=== PATIENT | female | born 1940 ===

== ENCOUNTER 2017-01-02 20:34 | Inpatient (IN) | payer MEDICAID, MEDICARE, OTHER ==
[2017-01-02] MEDS ORDERED: Albuterol-Ipratrop 3 mg / 0.5 (3 ml) UD IH STA (20:43)
--- NOTE | 2017-01-02 20:43 | ED PDOC ---
HPI: CCC, URI, Sore Throat Time Seen by Provider: 01/02/17 20:37 Chief Complaint (Nursing): Flu-like Symptoms Chief Complaint (Provider): Cough History Per: Patient History/Exam Limitations: no limitations Have you had recent travel within the past 21 days to any of the following countries: [place], [place], [place] or [place]?: No Onset/Duration Of Symptoms: Days (x3) Current Symptoms Are (Timing): Still Present Associated Symptoms: Fever (subjective), Cough (w/cough associated chest pain), Sputum (brown), Myalgias Severity: Moderate Additional Complaint(s): Yovana Hernandes is a 76 year old female, with a past medical history inclusive of HTN, hypercholesterolemia, asthma and type II diabetes, who presents to the ED on 01/02/17, via EMS, for the evaluation of a moderate cough, productive of brown sputum, that she has experienced x3 days. Some cough-associated chest pain also reported in addition to a subjective fever and diffuse myalgias. PMD: Gagandeep Escobar Past Medical History Reviewed: Historical Data, Nursing Documentation, Vital Signs Vital Signs: Last Vital Signs Temp 101.7 F H 01/02/17 20:43 Pulse 105 H 01/02/17 20:43 Resp 16 01/02/17 20:43 BP 157/85 H 01/02/17 20:43 Pulse Ox 100 01/02/17 20:43 - Medical History PMH: Asthma, Diabetes (type II), HTN, Hypercholesterolemia - Surgical History Surgical History: No Surg Hx - Family History Family History: States: Unknown Family Hx - Immunization History Hx Tetanus Toxoid Vaccination: No - Home Medications Home Medications: Ambulatory Orders Medication Instructions Recorded Ondansetron ODT [Zofran ODT] 4 mg PO Q6 #20 odt 12/26/14 Albuterol 0.083% [Albuterol 3 ml IH Q8 #1 neb 10/10/16 Sulfate 3 Ml] Oseltamivir [Tamiflu] 75 mg PO BID #10 cap 10/10/16 Promethazine/Codeine 5 ml PO Q8 #60 ml 10/10/16 [Codeine/Promethazine 10 MG/5 Ml-6.25 MG/5 Ml] - Allergies Allergies/Adverse Reactions: Allergies Allergy/AdvReac Type Severity Reaction Status Date / Time No Known Allergies Allergy Verified 01/02/17 20:43 Review of Systems ROS Statement: Except As Marked, All Systems Reviewed And Found Negative Constitutional: Positive for: Fever (subjective), Other (diffuse myalgias) Respiratory: Positive for: Cough (w/cough associated chest pain), Sputum (brown) Physical Exam - Reviewed Nursing Documentation Reviewed: Yes Vital Signs Reviewed: Yes - Physical Exam Appears: Positive for: Non-toxic, No Acute Distress Head Exam: Positive for: ATRAUMATIC, NORMOCEPHALIC Skin: Positive for: Normal Color, Warm, Dry Eye Exam: Positive for: Normal appearance, PERRL ENT: Positive for: Normal ENT Inspection. Negative for: Pharyngeal Erythema, Tonsillar Exudate, Tonsillar Swelling Cardiovascular/Chest: Positive for: Regular Rate, Rhythm. Negative for: Murmur Respiratory: Positive for: Rhonchi (b/l). Negative for: Wheezing, Respiratory Distress Back: Positive for: Normal Inspection Extremity: Positive for: Normal ROM. Negative for: Swelling Neurologic/Psych: Positive for: Alert, Oriented - Laboratory Results Result Diagrams: 01/02/17 21:04 01/02/17 21:04 Medical Decision Making Medical Decision Makin:37 Initial Impression: fever, cough, body aches Initial Plan: * EKG * CXR * VBG Shock Panel * Labs * Troponin I * Influenza A B * Blood Culture * Tylenol 650mg PO * Duonebs 3ml INH * Peak Flow Pre/Post Treatment * Reevaluation Scribe Attestation: Documented by Savanna Colon, acting as a scribe for Willam Watkins MD. Provider Scribe Attestation: All medical record entries made by the Scribe were at my direction and personally dictated by me. I have reviewed the chart and agree that the record accurately reflects my personal performance of the history, physical exam, medical decision making, and the department course for this patient. I have also personally directed, reviewed, and agree with the discharge instructions and disposition. Disposition - Clinical Impression Clinical Impression: Systemic inflammatory response syndrome (SIRS) - Patient ED Disposition Is Patient to be Admitted: Yes - Disposition Disposition Time: 22:19 Condition: FAIR - Pt Status Changed To: Hospital Disposition Of: Inpatient - Admit Certification Admit to Inpatient:: After my assessment, the patient will require hospitalization for at least two midnights. This is because of the severity of symptoms shown, intensity of services needed, and/or the medical risk in this patient being treated as an outpatient. - POA Present On Arrival: None
[2017-01-02] MEDS ORDERED: Albuterol-Ipratrop 3 mg / 0.5 (3 ml) UD ONE (20:49)
[2017-01-02 21:17] LABS: VENOUS BLOOD GAS BASE EXCESS 4.5 mmol/L (0.0-2.0); VENOUS BLOOD GAS PCO2 39 mmHg (40-60); VENOUS BLOOD PH 7.47 (7.32-7.43)
[2017-01-02] MEDS ORDERED: Sodium Chloride 0.9% 1,000 ML IV STA (21:18)
[2017-01-02 21:20] LABS: BASO # 0.1 K/uL (0.0-0.2); BASO % 0.6 % (0.0-2.0); EOS % 0.5 % (0.0-4.0); HEMATOCRIT 35.6 % (34.0-47.0); LYMPH # 1.7 K/uL (1.0-4.3); LYMPH % 17.3 % (20.0-40.0); MEAN CELL VOLUME 83.4 fl (81.0-99.0); MEAN CORPUSCULAR HEMOGLOBIN 27.5 pg (27.0-31.0); MONO # 1.3 K/uL (0.0-0.8); MONO % 13.7 % (0.0-10.0); NEUT # 6.5 K/uL (1.8-7.0); NEUT % 67.9 % (50.0-75.0); NRBC % 0.1 % (0.0-0.0); RED CELL DISTRIBUTION WIDTH 15.7 % (11.5-14.5); WHITE BLOOD COUNT 9.6 K/uL (4.8-10.8)
[2017-01-02 21:26] LABS: ALB/GLOB RATIO 1.2 (1.0-2.1); ALKALINE PHOSPHATASE 70 U/L (38-126); ALT/SGPT 88 U/L (9-52); AST/SGOT 187 U/L (14-36); BILIRUBIN,TOTAL 0.4 mg/dl (0.2-1.3); BLOOD UREA NITROGEN 13 mg/dl (7-17); CALCIUM 9.1 mg/dL (8.4-10.2); CARBON DIOXIDE 24 mmol/L (22-30); CHLORIDE 99 mmol/L (98-107); GFR AFRICAN-AMERICAN > 60; GLUCOSE,RANDOM 192 mg/dL (65-105); POTASSIUM 3.9 MMOL/L (3.6-5.0); SODIUM 139 mmol/l (132-148); TOTAL PROTEIN 7.1 G/DL (6.3-8.2)
[2017-01-02] MEDS ORDERED: Azithromycin 500 MG in Sodium Chloride 0.9% 250 ML IVPB STA (22:17)
[2017-01-02] MEDS ORDERED: cefTRIAXone (Rocephin) 1 gm Inj ONE (22:53)
[2017-01-03 01:40] LABS: VENOUS BLOOD GAS BASE EXCESS 1.7 mmol/L (0.0-2.0); VENOUS BLOOD GAS PCO2 42 mmHg (40-60); VENOUS BLOOD PH 7.41 (7.32-7.43)
--- NOTE | 2017-01-03 02:49 | CP.PCM.HP ---
History of Present Illness - History of Present Illness History of Present Illness: 76 yo F w PMHx HTN, DM, and HLD is admitted to the hospital with complaints of subjective fever, productive cough, and brown sputum for 3 days. Pt speaks in full sentences and appears without any apparent respiratory distress. She denies known recent h/o exertional dyspnea, lower extremity swelling, sick contacts, night sweats, dizziness, or palpitations. Also denies nausea, vomiting , diarrhea, constipation, headaches, non-cough associated chest pain, abdominal pain, hematuria, dysuria, or other myalgias. PMD: Dr Edna Escobar, [facility] PMHx: HTN, DM, HLD, GERD, Neuropathy, Asthma, Depression, Osteoarthritis, Skin Cancer, Zoster PSHx: Tubal Ligation 20+ yrs ago NKDA Home Meds: Metformin 1000 BID, Singulair 10 HS, Advair 250-50 BID, ProAir PRN, Januvia 100 QD, Voltaren Gel PRN, Valsartan-HCTZ 320-25, Dexilant 60 QD, Duloxetine 60 QD FHx: None SHx: denies etoh, illicit drugs, cigarettes ED Course: -CBC -CMP -Troponin STAT x1 -VBG x2 -BCx -CXR -EKG -Flu A/B -NS 1L -Ceftriaxone 1g ONCE -Azithromycin 500mg ONCE Present on Admission - Present on Admission Any Indicators Present on Admission: Yes History of DVT/PE: No History of Uncontrolled Diabetes: Yes Urinary Catheter: No Decubitus Ulcer Present: No Review of Systems - Review of Systems Review of Systems: see HPI Past Patient History - Past Medical History & Family History Past Medical History?: Yes - Past Social History Smoking Status: Never Smoked - CARDIAC Hx Cardiac Disorders: Yes Hx Hypercholesterolemia: Yes Hx Hypertension: Yes - PULMONARY Hx Respiratory Disorders: Yes Hx Asthma: Yes - NEUROLOGICAL Hx Neurological Disorder: No - HEENT Hx HEENT Problems: No - RENAL Hx Chronic Kidney Disease: No - ENDOCRINE/METABOLIC Hx Endocrine Disorders: Yes Hx Diabetes Mellitus Type 2: Yes - HEMATOLOGICAL/ONCOLOGICAL Hx Blood Disorders: No Hx AIDS: No Hx Human Immunodeficiency Virus (HIV): No - INTEGUMENTARY Hx Dermatological Problems: No - MUSCULOSKELETAL/RHEUMATOLOGICAL Hx Musculoskeletal Disorders: No Hx Falls: No - GASTROINTESTINAL Hx Gastrointestinal Disorders: No - GENITOURINARY/GYNECOLOGICAL Hx Genitourinary Disorders: No - PSYCHIATRIC Hx Depression: Yes Hx Substance Use: No - SURGICAL HISTORY Hx Surgeries: No - ANESTHESIA Hx Anesthesia: Yes Hx Anesthesia Reactions: No Hx Malignant Hyperthermia: No Meds Allergies/Adverse Reactions: Allergies Allergy/AdvReac Type Severity Reaction Status Date / Time No Known Allergies Allergy Verified 01/02/17 20:43 Physical Exam - Constitutional Appears: Non-toxic, No Acute Distress - Head Exam Head Exam: ATRAUMATIC, NORMAL INSPECTION - Eye Exam Eye Exam: EOMI Pupil Exam: PERRL - ENT Exam ENT Exam: Mucous Membranes Dry - Neck Exam Neck exam: Positive for: Full Rom. Negative for: Tenderness - Respiratory Exam Respiratory Exam: Rhonchi (mild b/l), NORMAL BREATHING PATTERN. absent: Respiratory Distress - Cardiovascular Exam Cardiovascular Exam: REGULAR RHYTHM - GI/Abdominal Exam GI & Abdominal Exam: Normal Bowel Sounds, Soft. absent: Tenderness - Extremities Exam Extremities exam: Positive for: normal inspection. Negative for: calf tenderness, pedal edema - Neurological Exam Neurological exam: Alert, CN II-XII Intact, Oriented x3 - Psychiatric Exam Psychiatric exam: Normal Affect, Normal Mood - Skin Skin Exam: Dry, Intact, Normal Color, Warm Results - Vital Signs Recent Vital Signs: Last Vital Signs Temp 98.6 F 01/03/17 01:59 Pulse 68 01/03/17 02:31 Resp 20 01/03/17 02:31 BP 129/70 01/03/17 01:59 Pulse Ox 96 01/03/17 02:31 - Labs Result Diagrams: 01/02/17 21:04 01/02/17 21:04 Labs: Laboratory Results - last 24 hr 01/03/17 01:35 pO2 73 H VBG pH 7.41 VBG pCO2 42 VBG HCO3 26.2 VBG Total CO2 27.9 VBG O2 Sat (Calc) 97.5 H VBG Base Excess 1.7 VBG Potassium 3.8 Sodium 137.0 Chloride 104.0 Glucose 139 H Lactate 2.5 H FiO2 21.0 Blood Gas Notified Time 140 Venous Blood Potassium 3.8 Assessment & Plan - Assessment and Plan (Free Text) Plan: 76 yo F w PMHx HTN, DM, and Asthma is admitted to the hospital with complaints of subjective fever, productive cough, and brown sputum for 3 days 1) Likely CAP in setting of Asthma -Ceftriaxone IVP Daily -Azithromycin 500mg IVP Daily -Duonebs 3mL INH RQID -Advair 250-50 BID -Montelukast 10mg PO HS -f/u CXR -f/u BNP -f/u Vitals, Respiratory Status -f/u BCx 2) HTN -Valsartan 320mg PO Daily -Hydrochlorothiazide 25mg PO Daily -f/u Vitals 3) DM -Januvia 100mg PO Daily -Metformin HELD -Lispro Sliding Scale -f/u FS ACHS 4) Depression -Cymbalta 60mg PO Daily 5) GERD -Protonix 40mg PO Daily 6) DVT Prophylaxis -SCDs -Will consider further treatment if hospital stay is extended
[2017-01-03] MEDS: Insulin Lispro (humaLOG) 100 Units/ml Inj SC SCH ×3 (06:50→16:45)
[2017-01-03] MEDS: Albuterol-Ipratrop 3 mg / 0.5 (3 ml) UD INH SCH ×4 (07:43→19:57)
[2017-01-03] MEDS ORDERED: DEXLANSOPRAZOLE 60 MG PO SCH (09:00)
[2017-01-03] MEDS ORDERED: Patient's Own Med (Valsartan [Diovan] 320 MG) PO SCH (09:00)
[2017-01-03] MEDS ORDERED: cefTRIAXone 2 GM in Sodium Chloride 0.9% 100 ML IVPB SCH (09:00)
--- NOTE | 2017-01-03 09:09 | CP.PCM.PN ---
Subjective - Date & Time of Evaluation Date of Evaluation: 01/03/17 Time of Evaluation: 07:35 - Subjective Subjective: The patient is a 76 y/o woman w PMHx HTN, DM, and HLD is admitted to the hospital with complaints of subjective fever, productive cough, and brown sputum for 3 days prior to admission. The patient was seen this morning. There are no acute events overnight. The patient is not in acute distress. The patient is laying in bed receiving duoneb treatment. The patient reports cough with phlegm but no blood. Patient complaining of general body pain. The patient denies headaches, dizziness, chest pain, nausea, vomiting, dysuria, and fever. Objective - Vital Signs/Intake and Output Vital Signs (last 24 hours): Temp Pulse Resp BP Pulse Ox 99.1 F 83 18 125/64 94 L 01/03/17 08:12 01/03/17 08:12 01/03/17 08:12 01/03/17 08:12 01/03/17 08:12 - Medications Medications: Current Medications Acetaminophen (Tylenol 325mg Tab) 650 mg PO Q6 PRN PRN Reason: Fever >100.4 F Albuterol/Ipratropium (Duoneb 3 Mg/0.5 Mg (3 Ml) Ud) 3 ml INH RQID VALERIANO Last Admin: 01/03/17 07:43 Dose: 3 ml Duloxetine HCl (Cymbalta) 60 mg PO DAILY [facility] Hydrochlorothiazide (Hydrodiuril) 25 mg PO DAILY [facility] Ceftriaxone Sodium 2 gm/ (Sodium Chloride) 100 mls @ 100 mls/hr IVPB DAILY [facility] Azithromycin 500 mg/ Sodium (Chloride) 250 mls @ 250 mls/hr IVPB DAILY [facility] Ibuprofen (Motrin Tab) 600 mg PO Q8 PRN PRN Reason: Pain, Mild (1-3) Insulin Human Lispro (Humalog) 0 units SC ACTID VALERIANO PRN Reason: Protocol Last Admin: 01/03/17 06:50 Dose: 2 u Ketorolac Tromethamine (Toradol) 15 mg IVP Q6 PRN PRN Reason: Pain, moderate (4-7) Last Admin: 01/03/17 05:57 Dose: 15 mg Montelukast Sodium (Singulair) 10 mg PO HS [facility] Pantoprazole Sodium (Protonix Ec Tab) 40 mg PO DAILY [facility] Fluticasone/Salmeterol (Advair Diskus 250/50) 1 puff IH BID [facility] Sitagliptin Phosphate (Januvia) 100 mg PO DAILY [facility] Valsartan (Diovan) 320 mg PO DAILY [facility]ERIAN[facility] - Constitutional Appears: No Acute Distress - Head Exam Head Exam: ATRAUMATIC, NORMOCEPHALIC - Respiratory Exam Respiratory Exam: Rhonchi. absent: Accessory Muscle Use, Chest Wall Tenderness , Decreased Breath Sounds, Respiratory Distress, Stridor Additional comments: diffuse rhonchi. Speaks in full sentences with no distress - Cardiovascular Exam Cardiovascular Exam: REGULAR RHYTHM. absent: Tachycardia - GI/Abdominal Exam GI & Abdominal Exam: Soft, Normal Bowel Sounds. absent: Tenderness Additional comments: obese abdomen - Extremities Exam Extremities Exam: absent: Calf Tenderness, Tenderness - Neurological Exam Neurological Exam: Alert, Awake, Oriented x3 - Skin Skin Exam: Dry, Intact, Normal Color, Warm Assessment and Plan - Assessment and Plan (Free Text) Assessment: The patient is a 76 y/o woman w PMHx HTN, DM, and HLD is admitted to the hospital with complaints of subjective fever, productive cough, and brown sputum for 3 days prior to admission. Plan: 1) Pneumonia -Ceftriaxone 2 gm IVP Daily -Azithromycin 500mg IVP Daily -Duonebs 3mL INH RQID -Advair 250-50 BID -Montelukast 10mg PO HS -f/u CXR -f/u BNP -f/u Vitals, Respiratory Status -f/u BCx 2) HTN -Valsartan 320mg PO Daily -Hydrochlorothiazide 25mg PO Daily -f/u Vitals 3) DM -Januvia 100mg PO Daily -Metformin HELD -Lispro Sliding Scale -f/u FS ACHS -hypolgycemia treatment protocol 4) Depression -Cymbalta 60mg PO Daily 5) GERD -Protonix 40mg PO Daily 6) DVT Prophylaxis -SCDs -lovenox 40 mg SC
[2017-01-03] MEDS: Pantoprazole 40 mg EC Tab PO SCH (09:23)
[2017-01-03] MEDS: Fluticasone-Salmeterol 250-50mcg Diskus IH SCH ×2 (09:24→16:44)
[2017-01-03] MEDS: Azithromycin 500 MG in Sodium Chloride 0.9% 250 ML IVPB SCH (09:28)
[2017-01-03] MEDS ORDERED: cefTRIAXone 1 GM in Sodium Chloride 0.9% 100 ML IVPB SCH (10:16)
--- NOTE | 2017-01-03 10:31 | RAD ---
HISTORY: cough COMPARISON: 10/10/2016. FINDINGS: LUNGS: No active pulmonary disease. PLEURA: No significant pleural effusion identified, no pneumothorax apparent. CARDIOVASCULAR: No radiographic findings to suggest acute or significant cardiovascular disease. OSSEOUS STRUCTURES: No significant abnormalities. VISUALIZED UPPER ABDOMEN: Normal. OTHER FINDINGS: None. IMPRESSION: No active disease. No significant interval change compared to the prior examination(s).
[2017-01-03] MEDS: Enoxaparin 40 mg Syringe SC SCH (12:30)
--- NOTE | 2017-01-03 21:28 | CARD ---
APPROVED REPORT EKG Measurement Heart [id number] <Conclusion> Normal sinus rhythm Normal ECG
[2017-01-04] MEDS: Albuterol-Ipratrop 3 mg / 0.5 (3 ml) UD INH SCH ×3 (07:18→16:00)
[2017-01-04 08:24] LABS: HEMATOCRIT 36.2 % (34.0-47.0); MEAN CELL VOLUME 83.6 fl (81.0-99.0); MEAN CORPUSCULAR HEMOGLOBIN 26.8 pg (27.0-31.0); RED CELL DISTRIBUTION WIDTH 15.6 % (11.5-14.5); WHITE BLOOD COUNT 7.3 K/uL (4.8-10.8)
[2017-01-04] MEDS: Fluticasone-Salmeterol 250-50mcg Diskus IH SCH (08:59)
[2017-01-04] MEDS: Pantoprazole 40 mg EC Tab PO SCH (08:59)
[2017-01-04] MEDS: Enoxaparin 40 mg Syringe SC SCH (09:00)
[2017-01-04] MEDS ORDERED: methylPREDNISolone 40 MG in Sodium Chloride 0.9% 50 ML IV SCH (09:00)
[2017-01-04] MEDS: Azithromycin 500 MG in Sodium Chloride 0.9% 250 ML IVPB SCH (09:01)
[2017-01-04] MEDS: Insulin Lispro (humaLOG) 100 Units/ml Inj SC SCH ×2 (09:02→12:26)
[2017-01-04 09:10] LABS: BLOOD UREA NITROGEN 10 mg/dl (7-17); CALCIUM 8.8 mg/dL (8.4-10.2); CARBON DIOXIDE 24 mmol/L (22-30); CHLORIDE 102 mmol/L (98-107); GFR AFRICAN-AMERICAN > 60; GLUCOSE,RANDOM 177 mg/dL (65-105); POTASSIUM 3.9 MMOL/L (3.6-5.0); SODIUM 140 mmol/l (132-148)
[2017-01-04 12:24] VITALS: BP 131/68; PULSE 106; RESP 20; TEMP 99.1; O2SAT 93
--- NOTE | 2017-01-04 13:56 | CP.PCM.DIS ---
Provider - Provider Date of Admission: 01/02/17 22:17 Attending physician: Tiara Del Toro MD Primary care physician: Gagandeep Escobar MD Time Spent in preparation of Discharge (in minutes): 30 Diagnosis - Discharge Diagnosis (1) Bronchitis Status: Acute Hospital Course - Lab Results Lab Results: Most Recent Lab Values WBC 7.3 K/uL (4.8-10.8) 01/04/17 07:50 RBC 4.33 Mil/uL (3.80-5.20) 01/04/17 07:50 Hgb 11.6 g/dL (12.0-16.0) L 01/04/17 07:50 Hct 36.2 % (34.0-47.0) 01/04/17 07:50 MCV 83.6 fl (81.0-99.0) 01/04/17 07:50 MCH 26.8 pg (27.0-31.0) L 01/04/17 07:50 MCHC 32.0 g/dL (33.0-37.0) L 01/04/17 07:50 RDW 15.6 % (11.5-14.5) H 01/04/17 07:50 Plt Count 183 K/uL (130-400) 01/04/17 07:50 MPV 10.0 fl (7.2-11.7) 01/02/17 21:04 Neut % (Auto) 67.9 % (50.0-75.0) 01/02/17 21:04 Lymph % (Auto) 17.3 % (20.0-40.0) L 01/02/17 21:04 Placer % (Auto) 13.7 % (0.0-10.0) H 01/02/17 21:04 Eos % (Auto) 0.5 % (0.0-4.0) 01/02/17 21:04 Baso % (Auto) 0.6 % (0.0-2.0) 01/02/17 21:04 Neut # 6.5 K/uL (1.8-7.0) 01/02/17 21:04 Lymph # 1.7 K/uL (1.0-4.3) 01/02/17 21:04 Placer # 1.3 K/uL (0.0-0.8) H 01/02/17 21:04 Eos # 0.0 K/uL (0.0-0.7) 01/02/17 21:04 Baso # 0.1 K/uL (0.0-0.2) 01/02/17 21:04 pO2 73 mm/Hg (30-55) H 01/03/17 01:35 VBG pH 7.41 (7.32-7.43) 01/03/17 01:35 VBG pCO2 42 mmHg (40-60) 01/03/17 01:35 VBG HCO3 26.2 mmol/L 01/03/17 01:35 VBG Total CO2 27.9 mmol/L (22-28) 01/03/17 01:35 VBG O2 Sat (Calc) 97.5 % (40-65) H 01/03/17 01:35 VBG Base Excess 1.7 mmol/L (0.0-2.0) 01/03/17 01:35 VBG Potassium 3.8 mmol/L (3.6-5.2) 01/03/17 01:35 Sodium 137.0 mmol/L (132-148) 01/03/17 01:35 Chloride 104.0 mmol/L (98-107) 01/03/17 01:35 Glucose 139 mg/dL (65-105) H 01/03/17 01:35 Lactate 2.5 mmol/L (0.7-2.1) H 01/03/17 01:35 FiO2 21.0 % 01/03/17 01:35 Blood Gas Notified Time 140 01/03/17 01:35 Sodium 140 mmol/l (132-148) 01/04/17 07:50 Potassium 3.9 MMOL/L (3.6-5.0) 01/04/17 07:50 Chloride 102 mmol/L (98-107) 01/04/17 07:50 Carbon Dioxide 24 mmol/L (22-30) 01/04/17 07:50 Anion Gap 18 (10-20) 01/04/17 07:50 BUN 10 mg/dl (7-17) 01/04/17 07:50 Creatinine 0.4 mg/dL (0.7-1.2) L 01/04/17 07:50 Est GFR ( Amer) > 60 01/04/17 07:50 Est GFR (Non-Af Amer) > 60 01/04/17 07:50 POC Glucose (mg/dL) 280 mg/dL (65-110) H 01/04/17 12:00 Random Glucose 177 mg/dL (65-105) H 01/04/17 07:50 Calcium 8.8 mg/dL (8.4-10.2) 01/04/17 07:50 Total Bilirubin 0.4 mg/dl (0.2-1.3) 01/02/17 21:04 AST 187 U/L (14-36) H 01/02/17 21:04 ALT 88 U/L (9-52) H 01/02/17 21:04 Alkaline Phosphatase 70 U/L (38-126) 01/02/17 21:04 Troponin I < 0.0120 ng/mL (0.00-0.120) 01/02/17 21:04 NT-Pro-B Natriuret Pep 97.8 pg/ml (0-900) 01/03/17 07:30 Total Protein 7.1 G/DL (6.3-8.2) 01/02/17 21:04 Albumin 3.8 g/dL (3.5-5.0) 01/02/17 21:04 Globulin 3.3 gm/dL (2.2-3.9) 01/02/17 21:04 Albumin/Globulin Ratio 1.2 (1.0-2.1) 01/02/17 21:04 Venous Blood Potassium 3.8 mmol/L (3.6-5.2) 01/03/17 01:35 Influenza Typ A,B (EIA) Negative for flu a/b (NEGATIVE) 01/02/17 21:04 - Hospital Course Hospital Course: The patient is a 76 y/o woman w PMHx HTN, DM, and HLD is admitted to the hospital with complaints of subjective fever, productive cough, and brown sputum for 3 days prior to admission. The patient was started on treatment for SIRS secondary to community acquired pneumonia with IV ceftriaxone and IV azithromycin. The patietn was febrile on admission and had venous blood gas that showed respiratory alkalosis which resolved after repeat VBG. Patient never had elevated WBC but had elevated lactate of 2.8. Patient was saturating in mid 90s on room air. Patient received duoneb treatment and given IV steroid to help with breathing and inflammation. CXR final report read showing no active disease. Patient was seen by physical therapy and cleared. Patient is clinically improved. The patient has been seen, examined, and deemed medically fit with no contraindication for discharge home. The patient will be sent home on PO azithromycin for 5 more days and PO prednisone for 3 more days. The patient is to follow up with Dr. Escobar in the [facility]. - Date & Time of H&P Date of H&P: 01/03/17 Time of H&P: 02:48 Discharge Exam - Head Exam Head Exam: ATRAUMATIC, NORMOCEPHALIC - Eye Exam Eye Exam: EOMI Pupil Exam: PERRL - ENT Exam ENT Exam: Mucous Membranes Moist - Respiratory Exam Respiratory Exam: Clear to PA & Lateral. absent: Decreased Breath Sounds, Rhonchi, Wheezes, Respiratory Distress - Cardiovascular Exam Cardiovascular Exam: REGULAR RHYTHM. absent: Tachycardia - GI/Abdominal Exam GI & Abdominal Exam: Normal Bowel Sounds, Soft. absent: Distended, Tenderness - Extremities Exam Extremities exam: normal inspection - Neurological Exam Neurological exam: Alert, Normal Gait, Oriented x3 - Skin Skin Exam: Dry, Intact, Normal Color, Warm Discharge Plan - Discharge Medications Prescriptions: Azithromycin [Zithromax] 500 mg PO DAILY #5 tab predniSONE [predniSONE Tab] 20 mg PO DAILY #3 tab - Follow Up Plan Condition: FAIR Disposition: HOME/ ROUTINE Referrals: Gagandeep Escobar MD [Primary Care Provider] -
== END 2017-01-04 17:30 | disposition home or self-care (01) | DRG 202 ==
LOC: H.ER 20:34 → H.ERHOLD 22:17 → H.TEL 01-03 01:48
PROVIDERS: ADMIT Family Medicine Geriatric Medicine; ATTEND Family Medicine Geriatric Medicine
DX: J40 Bronchitis, not specified as acute or chronic (principal); E87.3 Alkalosis; G62.9 Polyneuropathy, unspecified; E11.9 Type 2 diabetes mellitus without complications; I10 Essential (primary) hypertension; E78.5 Hyperlipidemia, unspecified; E78.00 Pure hypercholesterolemia, unspecified; J45.909 Unspecified asthma, uncomplicated; K21.9 Gastro-esophageal reflux disease without esophagitis; F32.9 Major depressive disorder, single episode, unspecified; M19.90 Unspecified osteoarthritis, unspecified site; Z85.828 Personal history of other malignant neoplasm of skin

== ENCOUNTER 2017-07-07 22:33 | Inpatient (IN) | payer OTHER, MEDICAID ==
--- NOTE | 2017-07-07 23:37 | ED PDOC ---
HPI: General Adult Time Seen by Provider: 07/07/17 22:47 Chief Complaint (Nursing): ENT Problem Chief Complaint (Provider): Fever, Dizziness, Ear Pain History Per: Patient History/Exam Limitations: no limitations Onset/Duration Of Symptoms: Days (x 5) Current Symptoms Are (Timing): Better Additional Complaint(s): Yovana is a 77 y/o female with a history of hypertension, depression, diabetes, and a recent diagnosis of vertigo in the clinic. She presents to the ED complaining of fever, dizziness, and left ear pain for the past 5 days. Patient states that she was prescribed meclizine for vertigo and has taken it for the past few days with little relief, and has continued left sided ear pain and fever. Her symptoms have improved since taking Tylenol prior to arrival. She admits to nausea but denies associated vomiting or diarrhea. PMD: Dr. Gagandeep Escobar Past Medical History Reviewed: Historical Data, Nursing Documentation, Vital Signs Vital Signs: Last Vital Signs Temp 100.9 F H 07/07/17 22:36 Pulse 107 H 07/07/17 22:36 Resp 20 07/07/17 22:36 BP 151/51 H 07/07/17 22:36 Pulse Ox 95 07/08/17 03:15 - Medical History PMH: Asthma, Depression, Diabetes (type II), HTN, Hypercholesterolemia Denies: HIV, Chronic Kidney Disease Other PMH: Vertigo - Surgical History Surgical History: No Surg Hx - Family History Family History: States: Unknown Family Hx - Social History Current smoker - smoking cessation education provided: No Ex-Smoker (has not smoked in the last 12 months): No Alcohol: None Drugs: Denies - Immunization History Hx Tetanus Toxoid Vaccination: No - Home Medications Home Medications: Ambulatory Orders Medication Instructions Recorded Azithromycin [Zithromax] 500 mg PO DAILY #5 tab 01/04/17 DULoxetine [Cymbalta] 60 mg PO DAILY #30 ecc 01/04/17 Dexlansoprazole [Dexilant] 60 mg PO DAILY #30 little.bp 01/04/17 Fluticasone/Salmeterol 250/50 1 dsk IH DAILY #1 puff 01/04/17 [Advair Diskus 250/50] Metformin HCl [Glucophage] 1,000 mg PO BID #30 tablet 04/13/17 Montelukast [Singulair] 10 mg PO HS #30 tab 01/04/17 SITagliptin [Januvia] 100 mg PO DAILY #30 tab 01/04/17 hydroCHLOROthiazide [Hydrodiuril] 25 mg PO DAILY #30 tab 01/04/17 predniSONE [predniSONE Tab] 20 mg PO DAILY #3 tab 01/04/17 Albuterol HFA [Ventolin HFA 90 1 puff IH DAILY 07/08/17 mcg/actuation (8 g)] Aspirin [Adult Low Dose Aspirin EC] 81 mg PO DAILY 07/08/17 Docusate Sodium [Dok] 100 mg PO BID 07/08/17 Doxycycline Hyclate [Doryx] 100 mg PO BID 07/08/17 Fexofenadine HCl [LichaNf] 180 mg PO DAILY 07/08/17 Meclizine HCl [Motion Sickness II] 25 mg PO TID PRN 07/08/17 Mirtazapine [Remeron] 15 mg PO HS 07/08/17 Pantoprazole Sodium [Protonix] 40 mg PO DAILY 07/08/17 Valsartan [Diovan] 160 mg PO DAILY 07/08/17 - Allergies Allergies/Adverse Reactions: Allergies Allergy/AdvReac Type Severity Reaction Status Date / Time No Known Allergies Allergy Verified 01/02/17 20:43 Review of Systems ROS Statement: Except As Marked, All Systems Reviewed And Found Negative Constitutional: Positive for: Fever ENT: Positive for: Ear Pain (left sided) Gastrointestinal: Positive for: Nausea. Negative for: Vomiting, Diarrhea Neurological: Positive for: Dizziness Physical Exam - Reviewed Nursing Documentation Reviewed: Yes Vital Signs Reviewed: Yes - Physical Exam Appears: Positive for: Well, Non-toxic, No Acute Distress Head Exam: Positive for: ATRAUMATIC, NORMAL INSPECTION, NORMOCEPHALIC Skin: Positive for: Normal Color, Warm, DRY Eye Exam: Positive for: Normal appearance, EOMI, PERRL. Negative for: Nystagmus , Other (photophobia) ENT: Positive for: Normal ENT Inspection Neck: Positive for: Normal, Painless ROM, Supple Cardiovascular/Chest: Positive for: Regular Rate, Rhythm. Negative for: Edema, Murmur Respiratory: Positive for: Normal Breath Sounds. Negative for: Wheezing, Respiratory Distress Gastrointestinal/Abdominal: Positive for: Normal Exam, Bowel Sounds, Soft Back: Positive for: Normal Inspection Extremity: Positive for: Normal ROM. Negative for: Pedal Edema, Deformity Neurologic/Psych: Positive for: Alert, Oriented - Laboratory Results Result Diagrams: 07/08/17 00:38 07/08/17 00:38 - ECG O2 Sat by Pulse Oximetry: 95 (RA) Pulse Ox Interpretation: Normal - Critical Care Total Time (In Min): 30 Medical Decision Making Medical Decision Making: Time: 23:01 Initial Impression: 77 y/o female with nonspecific ear pain, dizziness, and fever Initial Plan: --CT Head w/o Contrast --EKG --CMP --Lact Acid, Plasma --Urine Dipstick --CBC --Toradol IV --Blood Culture --Influenza A B Time: 00:38 CT HEAD FINDINGS: Brain: Mild atrophy. No intracranial hemorrhage. No mass. Few scattered foci of decreased attenuation within periventricular/subcortical white matter. No definite edema. Ventricles: No hydrocephalus. Bones/joints: No acute fracture. Soft tissues: Unremarkable. Vasculature: Atherosclerotic disease of intracranial arteries. Sinuses: No acute sinusitis. Mastoid air cells: No mastoid effusion. Orbits: Unremarkable as visualized. IMPRESSION: 1. Nonspecific white matter changes. Acute infarction may be CT occult within first 24 hours. If a focal deficit persists, consider followup CT or MRI for further evaluation. 2. Incidental/non-acute findings are described above. Time: 1:12 --X-Ray shows no acute disease. Labs show elevated white blood cell count and lactic acid --Provider still awating urine specimen although patient denies any urine symptoms. --Case discussed with Dr. Siegel --Patient will be admitted for sepsis of uncertain etiology Clinical Impression: Fever with uncertain elevated white blood cell count and lactic acid Condition: Fair Scribe Attestation: Documented by Russell Jane, acting as a scribe for Forrest Snow MD Provider Scribe Attestation: All medical record entries made by the Scribe were at my direction and personally dictated by me. I have reviewed the chart and agree that the record accurately reflects my personal performance of the history, physical exam, medical decision making, and the department course for this patient. I have also personally directed, reviewed, and agree with the discharge instructions and disposition. Disposition - Clinical Impression Clinical Impression: Sepsis, UTI (urinary tract infection) - Patient ED Disposition Is Patient to be Admitted: Yes Doctor Will See Patient In The: Hospital Counseled Patient/Family Regarding: Studies Performed, Diagnosis, Rx Given - Disposition Disposition Time: 01:13 Condition: FAIR - Pt Status Changed To: Hospital Disposition Of: Inpatient - Admit Certification Admit to Inpatient:: After my assessment, the patient will require hospitalization for at least two midnights. This is because of the severity of symptoms shown, intensity of services needed, and/or the medical risk in this patient being treated as an outpatient. - POA Present On Arrival: None Addendum Addendum: 07/08/17 02:07 --Urine analysis reviewed and showed that pyelonephritis or urinary infection likely cause of sepsis
[2017-07-08] MEDS ORDERED: Sodium Chloride 0.9% 1,000 ML IV STA (00:36)
--- NOTE | 2017-07-08 00:39 | CT ---
EXAM: CT Head Without Intravenous Contrast CLINICAL HISTORY: 77 years old, female; Pain; Headache; Headache not specified TECHNIQUE: Axial computed tomography images of the head/brain without intravenous contrast. All CT scans at this facility use one or more dose reduction techniques, viz.: automated exposure control; ma/kV adjustment per patient size (including targeted exams where dose is matched to indication; i.e. head); or iterative reconstruction technique. Coronal and sagittal reformatted images were created and reviewed. COMPARISON: No relevant prior studies available. FINDINGS: Brain: Mild atrophy. No intracranial hemorrhage. No mass. Few scattered foci of decreased attenuation within periventricular/subcortical white matter. No definite edema. Ventricles: No hydrocephalus. Bones/joints: No acute fracture. Soft tissues: Unremarkable. Vasculature: Atherosclerotic disease of intracranial arteries. Sinuses: No acute sinusitis. Mastoid air cells: No mastoid effusion. Orbits: Unremarkable as visualized. IMPRESSION: 1. Nonspecific white matter changes. Acute infarction may be CT occult within first 24 hours. If a focal deficit persists, consider followup CT or MRI for further evaluation. 2. Incidental/non-acute findings are described above.
[2017-07-08 00:43] LABS: BASO # 0.3 K/uL (0.0-0.2); BASO % 1.8 % (0.0-2.0); EOS # 0.2 K/uL (0.0-0.7); EOS % 0.9 % (0.0-4.0); HEMATOCRIT 35.9 % (34.0-47.0); LYMPH # 3.1 K/uL (1.0-4.3); LYMPH % 18.1 % (20.0-40.0); MEAN CELL VOLUME 81.5 fl (81.0-99.0); MEAN CORPUSCULAR HGB CONC 31.9 g/dL (33.0-37.0); MEAN PLATELET VOLUME 8.9 fl (7.2-11.7); MONO # 1.2 K/uL (0.0-0.8); NEUT # 12.5 K/uL (1.8-7.0); NEUT % 72.2 % (50.0-75.0); WHITE BLOOD COUNT 17.4 K/uL (4.8-10.8)
[2017-07-08 00:53] LABS: ALB/GLOB RATIO 1.1 (1.0-2.1); ALKALINE PHOSPHATASE 83 U/L (38-126); ALT/SGPT 50 U/L (9-52); AST/SGOT 63 U/L (14-36); BILIRUBIN,TOTAL 0.3 mg/dl (0.2-1.3); BLOOD UREA NITROGEN 13 mg/dl (7-17); CALCIUM 9.3 mg/dL (8.4-10.2); CARBON DIOXIDE 23 mmol/L (22-30); CHLORIDE 98 mmol/L (98-107); GFR AFRICAN-AMERICAN > 60; GLUCOSE,RANDOM 161 mg/dL (65-105); POTASSIUM 3.8 MMOL/L (3.6-5.0); SODIUM 136 mmol/l (132-148); TOTAL PROTEIN 7.4 G/DL (6.3-8.2)
[2017-07-08] MEDS ORDERED: cefTRIAXone (Rocephin) 1 gm Inj ONE (01:39)
[2017-07-08 02:01] LABS: RBC URINE 6 /hpf (0-3); URINE BACTERIA MOD (<OCC); URINE BILIRUBIN NEGATIVE (NEGATIVE); URINE BLOOD SMALL (NEGATIVE); URINE COLOR YELLOW (YELLOW); URINE GLUCOSE (UA) NEG (Normal); URINE KETONE NEGATIVE (NEGATIVE); URINE LEUKOCYTE ESTERASE MOD Leu/uL (Negative); URINE PROTEIN 30 mg/dL (NEGATIVE); URINE UROBILINOGEN 0.2-1.0 mg/dL (0.2-1.0); WBC URINE 27 /hpf (0-5)
--- NOTE | 2017-07-08 02:13 | CP.PCM.HP ---
History of Present Illness - History of Present Illness History of Present Illness: 77 y/o female with a PMHx remarkable for HTN, Asthma, NIDDM2, depression and vertigo presents to the ED complaining of fever, dizziness, and left ear pain for the past 5 days. Patient states that she was prescribed meclizine for vertigo and has taken it for the past few days with little relief, and has continued left sided ear pain and fever. She denies any inciting event and reports being in her general state of health before hand. She has no other complaints. ROS: 12 points reviewed, found to be negative PMD: Dr. Gagandeep Escobar, last visit 07/03 PMHx: as above Meds: as per med rec Present on Admission - Present on Admission Any Indicators Present on Admission: No Past Patient History - Past Medical History & Family History Past Medical History?: Yes - Past Social History Alcohol: None Drugs: Denies - CARDIAC Hx Hypercholesterolemia: Yes Hx Hypertension: Yes - PULMONARY Hx Asthma: Yes - NEUROLOGICAL Hx Neurological Disorder: No - HEENT Hx HEENT Problems: No - RENAL Hx Chronic Kidney Disease: No - ENDOCRINE/METABOLIC Hx Endocrine Disorders: Yes Hx Diabetes Mellitus Type 2: Yes - HEMATOLOGICAL/ONCOLOGICAL Hx Human Immunodeficiency Virus (HIV): No - INTEGUMENTARY Hx Dermatological Problems: No - MUSCULOSKELETAL/RHEUMATOLOGICAL Hx Musculoskeletal Disorders: No Hx Falls: No - GASTROINTESTINAL Hx Gastrointestinal Disorders: No - GENITOURINARY/GYNECOLOGICAL Hx Genitourinary Disorders: No - PSYCHIATRIC Hx Depression: Yes - SURGICAL HISTORY Hx Surgeries: No - ANESTHESIA Hx Anesthesia: Yes Hx Anesthesia Reactions: No Hx Malignant Hyperthermia: No Meds Allergies/Adverse Reactions: Allergies Allergy/AdvReac Type Severity Reaction Status Date / Time No Known Allergies Allergy Verified 01/02/17 20:43 Physical Exam - Constitutional Appears: Non-toxic, No Acute Distress - Head Exam Head Exam: ATRAUMATIC - Eye Exam Eye Exam: EOMI. absent: Conjunctival injection, Scleral icterus Pupil Exam: PERRL - Neck Exam Neck exam: Positive for: Full Rom. Negative for: Tenderness - Respiratory Exam Respiratory Exam: Clear to Auscultation Bilateral, NORMAL BREATHING PATTERN. absent: Rales, Rhonchi, Wheezes - Cardiovascular Exam Cardiovascular Exam: REGULAR RHYTHM, RRR, +S1, +S2. absent: Gallop, JVD, Rubs, Systolic Murmur - GI/Abdominal Exam GI & Abdominal Exam: Normal Bowel Sounds, Soft. absent: Distended, Firm, Guarding, Rigid, Tenderness - Extremities Exam Extremities exam: Positive for: normal inspection. Negative for: calf tenderness, pedal edema - Back Exam Back exam: absent: CVA tenderness (L), CVA tenderness (R) - Neurological Exam Neurological exam: Alert, CN II-XII Intact, Oriented x3 - Psychiatric Exam Psychiatric exam: Normal Affect, Normal Mood - Skin Skin Exam: Dry, Normal Color, Warm Results - Vital Signs Recent Vital Signs: Last Vital Signs Temp 100.9 F H 07/07/17 22:36 Pulse 107 H 07/07/17 22:36 Resp 20 07/07/17 22:36 BP 151/51 H 07/07/17 22:36 Pulse Ox 95 07/08/17 02:08 - Labs Result Diagrams: 07/08/17 00:38 07/08/17 00:38 Labs: Laboratory Results - last 24 hr 07/08/17 07/08/17 07/08/17 00:38 00:38 00:38 WBC 17.4 H D RBC 4.41 Hgb 11.5 L Hct 35.9 MCV 81.5 MCH 26.0 L MCHC 31.9 L RDW 15.0 H Plt Count 307 MPV 8.9 Neut % (Auto) 72.2 Lymph % (Auto) 18.1 L Craig % (Auto) 7.0 Eos % (Auto) 0.9 Baso % (Auto) 1.8 Neut # 12.5 H Lymph # 3.1 Craig # 1.2 H Eos # 0.2 Baso # 0.3 H Sodium 136 Potassium 3.8 Chloride 98 Carbon Dioxide 23 Anion Gap 19 BUN 13 Creatinine 0.6 L Est GFR ( Amer) > 60 Est GFR (Non-Af Amer) > 60 Random Glucose 161 H Lactic Acid 3.5 H Calcium 9.3 Total Bilirubin 0.3 AST 63 H D ALT 50 Alkaline Phosphatase 83 Total Protein 7.4 Albumin 3.9 Globulin 3.6 Albumin/Globulin Ratio 1.1 Urine Color Urine Clarity Urine pH Ur Specific Monroe Urine Protein Urine Glucose (UA) Urine Ketones Urine Blood Urine Nitrate Urine Bilirubin Urine Urobilinogen Ur Leukocyte Esterase Urine RBC (Auto) Urine Microscopic WBC Ur Squamous Epith Cells Urine Bacteria Influenza Typ A,B (EIA) 07/08/17 07/08/17 00:38 01:27 WBC RBC Hgb Hct MCV MCH MCHC RDW Plt Count MPV Neut % (Auto) Lymph % (Auto) Craig % (Auto) Eos % (Auto) Baso % (Auto) Neut # Lymph # Craig # Eos # Baso # Sodium Potassium Chloride Carbon Dioxide Anion Gap BUN Creatinine Est GFR ( Amer) Est GFR (Non-Af Amer) Random Glucose Lactic Acid Calcium Total Bilirubin AST ALT Alkaline Phosphatase Total Protein Albumin Globulin Albumin/Globulin Ratio Urine Color Yellow Urine Clarity Cloudy Urine pH 5.0 Ur Specific Monroe 1.017 Urine Protein 30 Urine Glucose (UA) Neg Urine Ketones Negative Urine Blood Small Urine Nitrate Negative Urine Bilirubin Negative Urine Urobilinogen 0.2-1.0 Ur Leukocyte Esterase Mod Urine RBC (Auto) 6 H Urine Microscopic WBC 27 H Ur Squamous Epith Cells 5 Urine Bacteria Mod H Influenza Typ A,B (EIA) Negative for flu a/b Assessment & Plan (1) Sepsis Assessment and Plan: likley secondary to UTI as UA was positive for WBCs Rocephin 1gm IV given in ED monitor CBC/Vitals Status: Acute (2) Hypertension Assessment and Plan: controlled c/w home meds Status: Chronic (3) Diabetes mellitus Assessment and Plan: continue with home meds Status: Chronic (4) Asthma Assessment and Plan: controlled c/w home meds Status: Chronic (5) Prophylactic measure Status: Acute
[2017-07-08] MEDS: Sodium Chloride 0.9% 1,000 ML IV SCH ×2 (04:59→20:00)
[2017-07-08] MEDS: Pantoprazole 40 mg EC Tab PO SCH (08:47)
[2017-07-08] MEDS: Enoxaparin 40 mg Syringe SC SCH (08:48)
[2017-07-08] MEDS: Albuterol HFA 90 mcg/actuation (8 g) IH SCH (08:49)
[2017-07-08] MEDS: Fluticasone-Salmeterol 250-50mcg Diskus IH SCH (08:50)
[2017-07-08] MEDS ORDERED: Pantoprazole 40 mg EC Tab PO SCH (09:00)
[2017-07-08] MEDS ORDERED: VALSARTAN 160 MG PO SCH (09:00)
[2017-07-08] MEDS ORDERED: DEXLANSOPRAZOLE 60 MG PO SCH (09:00)
[2017-07-08] MEDS ORDERED: FEXOFENADINE HCL 180 MG PO SCH (09:00)
--- NOTE | 2017-07-08 09:18 | RAD ---
HISTORY: fever COMPARISON: 01/02/2017 FINDINGS: LUNGS: Low lung volumes are appreciated with some mild probable patchy subsegmental volume loss at the left lung base. Trachea is midline. PLEURA: No significant pleural effusion identified, no pneumothorax apparent. CARDIOVASCULAR: Normal. OSSEOUS STRUCTURES: No significant abnormalities. VISUALIZED UPPER ABDOMEN: Normal. OTHER FINDINGS: None. IMPRESSION: Mild patchy volume loss at the left lung base. No CHF.
--- NOTE | 2017-07-08 10:05 | CP.PCM.PN ---
Subjective - Date & Time of Evaluation Date of Evaluation: 07/08/17 Time of Evaluation: 08:15 - Subjective Subjective: 77 y/o female with a PMHx remarkable for HTN, Asthma, NIDDM2, depression and vertigo presented with Sepsis. Fever noted this morning. She shares of 1 month history of vertigo with L ear tenderness currently being evaluated by Dr. Escobar ; She denies SOB/CP/V FamHx: none PSurgHx: none Soc: Denies smoking/alcohol/illicit drugs Objective - Vital Signs/Intake and Output Vital Signs (last 24 hours): Temp Pulse Resp BP Pulse Ox 102.4 F H 96 H 18 139/65 95 07/08/17 08:42 07/08/17 08:00 07/08/17 08:00 07/08/17 08:00 07/08/17 08:00 - Medications Medications: Current Medications Acetaminophen (Tylenol 325mg Tab) 650 mg PO Q6 PRN PRN Reason: Fever >100.4 F Last Admin: 07/08/17 08:42 Dose: 650 mg Albuterol (Ventolin Hfa 90 Mcg/Actuation (8 G)) 1 puff IH DAILY [facility] Last Admin: 07/08/17 08:49 Dose: 1 puff Docusate Sodium (Colace) 100 mg PO BID [facility] Last Admin: 07/08/17 08:47 Dose: 100 mg Duloxetine HCl (Cymbalta) 60 mg PO DAILY [facility] Last Admin: 07/08/17 08:48 Dose: 60 mg Enoxaparin Sodium (Lovenox) 40 mg SC DAILY [facility] PRN Reason: Protocol Last Admin: 07/08/17 08:48 Dose: 40 mg Hydrochlorothiazide (Hydrodiuril) 25 mg PO DAILY [facility] Last Admin: 07/08/17 08:47 Dose: 25 mg Sodium Chloride (Sodium Chloride 0.9%) 1,000 mls @ 80 mls/hr IV .[id number] [facility] Stop: 07/09/17 04:02 Last Admin: 07/08/17 04:59 Dose: Not Given Ceftriaxone Sodium 1 gm/ (Sodium Chloride) 100 mls @ 100 mls/hr IVPB DAILY [facility] PRN Reason: Protocol Loratadine (Claritin) 10 mg PO DAILY [facility] Last Admin: 07/08/17 08:48 Dose: 10 mg Meclizine HCl (Antivert) 25 mg PO TID PRN PRN Reason: Dizziness Last Admin: 07/08/17 08:48 Dose: 25 mg Metformin HCl (Glucophage) 1,000 mg PO BID [facility] Last Admin: 07/08/17 08:47 Dose: 1,000 mg Mirtazapine (Remeron) 15 mg PO HS [facility] Montelukast Sodium (Singulair) 10 mg PO HS [facility] Ondansetron HCl (Zofran Inj) 4 mg IVP Q6 PRN PRN Reason: Nausea/Vomiting Pantoprazole Sodium (Protonix Ec Tab) 40 mg PO DAILY [facility] Last Admin: 07/08/17 08:47 Dose: 40 mg Fluticasone/Salmeterol (Advair Diskus 250/50) 1 puff IH DAILY [facility] Last Admin: 07/08/17 08:50 Dose: 1 puff Sitagliptin Phosphate (Januvia) 100 mg PO DAILY [facility] Last Admin: 07/08/17 08:47 Dose: 100 mg Valsartan (Diovan) 160 mg PO DAILY [facility] Last Admin: 07/08/17 08:47 Dose: 160 mg - Labs Labs: 07/08/17 00:38 07/08/17 00:38 - Constitutional Appears: Well, No Acute Distress - Eye Exam Eye Exam: EOMI, Normal appearance - ENT Exam ENT Exam: TM's Normal Bilaterally Additional comments: L side: External ear; When deep palpation of tragus, she shares of slight sensitivity Negative for Posterior auricular pain; negative for tenderness of of mastoid region or tenderness with jaw movement. negative for abnormal discharge Otoscope exam: canal is clear with minimal cerumen; Tympanic membrane translucent Pt able to discern sounds bilaterally - Neck Exam Neck Exam: Full ROM - Respiratory Exam Respiratory Exam: Clear to Ausculation Bilateral, NORMAL BREATHING PATTERN - Cardiovascular Exam Cardiovascular Exam: REGULAR RHYTHM, +S1, +S2 - GI/Abdominal Exam GI & Abdominal Exam: Soft, Normal Bowel Sounds - Extremities Exam Extremities Exam: Full ROM, Normal Inspection. absent: Calf Tenderness - Back Exam Back Exam: absent: CVA tenderness (L) - Neurological Exam Neurological Exam: Alert, Awake, Oriented x3 - Psychiatric Exam Psychiatric exam: Normal Affect, Normal Mood Assessment and Plan - Assessment and Plan (Free Text) Plan: 77 y/o female with a PMHx remarkable for HTN, Asthma, NIDDM2, depression and vertigo presented Septic 1) Sepsis - likely secondary to UTI as UA was positive for WBCs - Rocephin 1gm IV given in ED - Due to increased fever, discontinue Rocephin and start cefepine - Continue monitoring CBC/Vitals - ID consulted: Tragus tenderness of L 2) Pyelonephritis - UA with WBCs and Fever - CVA negative - Start Cefepine 3) HTN - controlled - c/w home meds 4) Diabetes Mellitus - continue with home meds - Monitor blood glucose 5) Asthma - controlled - c/w home meds - Monitor Oxygen saturation 6) DVT prophylaxis -Ambulating -SCDs Isaías Olson, PGY1
[2017-07-08] MEDS: Cefepime 2 GM in Sodium Chloride 0.9% 100 ML IVPB SCH ×2 (11:04→21:52)
[2017-07-08 12:29] LABS: HEMATOCRIT 33.7 % (34.0-47.0); MEAN CELL VOLUME 80.6 fl (81.0-99.0); MEAN CORPUSCULAR HEMOGLOBIN 26.2 pg (27.0-31.0); MEAN CORPUSCULAR HGB CONC 32.5 g/dL (33.0-37.0); RED CELL DISTRIBUTION WIDTH 14.7 % (11.5-14.5); WHITE BLOOD COUNT 14.9 K/uL (4.8-10.8)
[2017-07-08] MEDS: Ciprofloxacin/Dexamethasone OTIC SUSP AU SCH (16:20)
[2017-07-09 05:28] LABS: HEMATOCRIT 33.6 % (34.0-47.0); MEAN CELL VOLUME 81.3 fl (81.0-99.0); MEAN CORPUSCULAR HEMOGLOBIN 26.1 pg (27.0-31.0); MEAN CORPUSCULAR HGB CONC 32.1 g/dL (33.0-37.0); RED CELL DISTRIBUTION WIDTH 15.1 % (11.5-14.5); WHITE BLOOD COUNT 15.1 K/uL (4.8-10.8)
[2017-07-09 05:45] LABS: ALB/GLOB RATIO 1.1 (1.0-2.1); ALKALINE PHOSPHATASE 81 U/L (38-126); ALT/SGPT 37 U/L (9-52); AST/SGOT 28 U/L (14-36); BILIRUBIN,TOTAL 0.3 mg/dl (0.2-1.3); BLOOD UREA NITROGEN 8 mg/dl (7-17); CALCIUM 8.6 mg/dL (8.4-10.2); CARBON DIOXIDE 27 mmol/L (22-30); CHLORIDE 101 mmol/L (98-107); GFR AFRICAN-AMERICAN > 60; GLUCOSE,RANDOM 154 mg/dL (65-105); SODIUM 140 mmol/l (132-148)
[2017-07-09 07:08] LABS: POTASSIUM 3.5 MMOL/L (3.6-5.0)
[2017-07-09] MEDS: Fluticasone-Salmeterol 250-50mcg Diskus IH SCH (08:47)
[2017-07-09] MEDS: Enoxaparin 40 mg Syringe SC SCH (08:47)
[2017-07-09] MEDS: Albuterol HFA 90 mcg/actuation (8 g) IH SCH (08:47)
[2017-07-09] MEDS: Pantoprazole 40 mg EC Tab PO SCH (08:48)
[2017-07-09] MEDS: Ciprofloxacin/Dexamethasone OTIC SUSP AU SCH ×2 (08:48→16:16)
[2017-07-09] MEDS: Cefepime 2 GM in Sodium Chloride 0.9% 100 ML IVPB SCH (08:54)
--- NOTE | 2017-07-09 10:35 | CP.PCM.PN ---
Subjective - Date & Time of Evaluation Date of Evaluation: 07/09/17 Time of Evaluation: 07:15 - Subjective Subjective: pt seen and examined at bedside this morning. No acute events overnight. Low- grade fevers, ranging from 99.0-99.9 F. Tachycardia appreciated throughout the night. +Blood cultures. Pt laying in bed comfortably, NAD. Denies feeling febrile. Reports feeling better overall. OOB/ambulating with some dizziness. Denies CP/palpitations, N/V/D/C, urinary symptoms, calf pain. Objective - Vital Signs/Intake and Output Vital Signs (last 24 hours): Temp Pulse Resp BP Pulse Ox 99.9 F H 104 H 18 138/78 95 07/09/17 10:15 07/09/17 10:15 07/09/17 10:15 07/09/17 10:15 07/09/17 10:15 - Medications Medications: Current Medications Acetaminophen (Tylenol 325mg Tab) 650 mg PO Q6 PRN PRN Reason: Fever >100.4 F Last Admin: 07/08/17 16:19 Dose: 650 mg Albuterol (Ventolin Hfa 90 Mcg/Actuation (8 G)) 1 puff IH DAILY [facility] Last Admin: 07/09/17 08:47 Dose: 1 puff Ciprofloxacin/Dexamethasone (Ciprodex Otic) 4 drop AU BID [facility] Last Admin: 07/09/17 08:48 Dose: 4 drop Docusate Sodium (Colace) 100 mg PO BID [facility] Last Admin: 07/09/17 08:49 Dose: 100 mg Duloxetine HCl (Cymbalta) 60 mg PO DAILY [facility] Last Admin: 07/09/17 09:51 Dose: 60 mg Enoxaparin Sodium (Lovenox) 40 mg SC DAILY [facility] PRN Reason: Protocol Last Admin: 07/09/17 08:47 Dose: 40 mg Hydrochlorothiazide (Hydrodiuril) 25 mg PO DAILY [facility] Last Admin: 07/09/17 08:48 Dose: 25 mg Cefepime HCl 2 gm/ Sodium (Chloride) 100 mls @ 100 mls/hr IVPB Q12 [facility] PRN Reason: Protocol Last Admin: 07/09/17 08:54 Dose: 100 mls/hr Loratadine (Claritin) 10 mg PO DAILY [facility] Last Admin: 07/09/17 08:49 Dose: 10 mg Meclizine HCl (Antivert) 25 mg PO TID PRN PRN Reason: Dizziness Last Admin: 07/08/17 08:48 Dose: 25 mg Metformin HCl (Glucophage) 1,000 mg PO BID [facility] Last Admin: 07/09/17 08:48 Dose: 1,000 mg Mirtazapine (Remeron) 15 mg PO HS [facility] Last Admin: 07/08/17 21:52 Dose: 15 mg Montelukast Sodium (Singulair) 10 mg PO HS [facility] Last Admin: 07/08/17 21:52 Dose: 10 mg Ondansetron HCl (Zofran Inj) 4 mg IVP Q6 PRN PRN Reason: Nausea/Vomiting Pantoprazole Sodium (Protonix Ec Tab) 40 mg PO DAILY [facility] Last Admin: 07/09/17 08:48 Dose: 40 mg Fluticasone/Salmeterol (Advair Diskus 250/50) 1 puff IH DAILY [facility] Last Admin: 07/09/17 08:47 Dose: 1 puff Sitagliptin Phosphate (Januvia) 100 mg PO DAILY [facility] Last Admin: 07/09/17 08:48 Dose: 100 mg Valsartan (Diovan) 160 mg PO DAILY [facility] Last Admin: 07/09/17 08:50 Dose: 160 mg - Labs Labs: 07/09/17 04:20 07/09/17 04:20 - Constitutional Appears: Non-toxic, No Acute Distress - Head Exam Head Exam: ATRAUMATIC - Eye Exam Eye Exam: EOMI Pupil Exam: PERRL - ENT Exam ENT Exam: Mucous Membranes Moist - Respiratory Exam Respiratory Exam: Clear to Ausculation Bilateral, NORMAL BREATHING PATTERN. absent: Rales, Rhonchi, Wheezes - Cardiovascular Exam Cardiovascular Exam: REGULAR RHYTHM, RRR, +S1, +S2. absent: Tachycardia, JVD, Rubs, Murmur - GI/Abdominal Exam GI & Abdominal Exam: Soft, Normal Bowel Sounds. absent: Distended, Firm, Guarding, Rigid, Tenderness Additional comments: no suprapubic tenderness - Extremities Exam Extremities Exam: Normal Inspection, Pedal Edema (trace pedal edema). absent: Calf Tenderness - Back Exam Back Exam: absent: CVA tenderness (L), CVA tenderness (R) - Neurological Exam Neurological Exam: Alert, Awake, CN II-XII Intact, Oriented x3 - Psychiatric Exam Psychiatric exam: Normal Affect, Normal Mood - Skin Skin Exam: Dry, Intact, Normal Color, Warm Assessment and Plan (1) Sepsis Assessment & Plan: blood cultures positive with Gram negative Rods likely secondary to UTI as UA was positive for WBCs - CBC on 07/09: 15.1>10.8/33.6<285 - Lactate: 2.2 (down from 3.8) - Rocephin 1gm IV given in ED - Switched to Cefepine 2gm Q12H - f/u blood cultures negative - f/u Urine cultures/sensitivities - Continue monitoring CBC/Vitals - ID consulted: as per Dr. Stack: he recommends Cipro ear drops and continue with Cefepime. -will continue to follow recommendations Status: Acute (2) Hypertension Assessment & Plan: controlled c/w current medications Status: Chronic (3) Diabetes mellitus Assessment & Plan: c/w current home medications monitor blood glucose Status: Chronic (4) Asthma Assessment & Plan: controlled c/w home meds as ordered Status: Chronic (5) Prophylactic measure Assessment & Plan: Lovenox 40mg SC QD SCDs PRN OOB/ambulation Status: Acute
--- NOTE | 2017-07-09 10:47 | CARD ---
APPROVED REPORT EKG Measurement Heart [id number] <Conclusion> Sinus tachycardia Otherwise normal ECG
[2017-07-09] MEDS: Cefepime 2 GM in Dextrose 5% In Water 100 ML IVPB SCH (21:15)
[2017-07-10 06:42] LABS: BASO # 0.1 K/uL (0.0-0.2); BASO % 0.6 % (0.0-2.0); EOS # 0.4 K/uL (0.0-0.7); EOS % 2.9 % (0.0-4.0); HEMATOCRIT 32.8 % (34.0-47.0); LYMPH # 2.5 K/uL (1.0-4.3); MEAN CELL VOLUME 81.3 fl (81.0-99.0); MEAN CORPUSCULAR HGB CONC 33.1 g/dL (33.0-37.0); MEAN PLATELET VOLUME 9.3 fl (7.2-11.7); NEUT # 8.7 K/uL (1.8-7.0); NEUT % 68.5 % (50.0-75.0); RED CELL DISTRIBUTION WIDTH 15.5 % (11.5-14.5); WHITE BLOOD COUNT 12.7 K/uL (4.8-10.8)
[2017-07-10 06:51] LABS: BLOOD UREA NITROGEN 11 mg/dl (7-17); CARBON DIOXIDE 28 mmol/L (22-30); CHLORIDE 104 mmol/L (98-107); GFR AFRICAN-AMERICAN > 60; GLUCOSE,RANDOM 138 mg/dL (65-105); SODIUM 142 mmol/l (132-148)
[2017-07-10 06:52] LABS: CALCIUM 9.3 mg/dL (8.4-10.2)
[2017-07-10] MEDS: Fluticasone-Salmeterol 250-50mcg Diskus IH SCH (08:25)
[2017-07-10] MEDS: Ciprofloxacin/Dexamethasone OTIC SUSP AU SCH ×2 (08:26→16:53)
[2017-07-10] MEDS: Enoxaparin 40 mg Syringe SC SCH (08:28)
[2017-07-10] MEDS: Pantoprazole 40 mg EC Tab PO SCH (08:28)
[2017-07-10] MEDS: Albuterol HFA 90 mcg/actuation (8 g) IH SCH (08:29)
[2017-07-10] MEDS: Cefepime 2 GM in Dextrose 5% In Water 100 ML IVPB SCH (08:37)
--- NOTE | 2017-07-10 09:07 | CARD ---
APPROVED REPORT EXAM: Two-dimensional and M-mode echocardiogram with Doppler and color Doppler. Other Information Quality : AverageRhythm : Tachycardia INDICATION Infection: 2D DIMENSIONS IVSd1.68 (0.7-1.1cm)LVDd3.23 (3.9-5.9cm) LVOT Diameter1.73 (1.8-2.4cm)PWd0.77 (0.7-1.1cm) IVSs1.84 (0.8-1.2cm)LVDs1.43 (2.5-4.0cm) FS (%) 55.7 %PWs1.25 (0.8-1.2cm) M-Mode DIMENSIONS Left Atrium (MM)2.10 (2.5-4.0cm)IVSd1.05 (0.7-1.1cm) Aortic Root3.12 (2.2-3.7cm)LVDd4.11 (4.0-5.6cm) Aortic Cusp Exc.1.88 (1.5-2.0cm)PWd1.08 (0.7-1.1cm) IVSs1.74 cmFS (%) 51 % LVDs2.01 (2.0-3.8cm)PWs1.43 cm Mitral Valve MV E Ufaoxjxy86.6cm/sMV DECEL [id number] A Dbfneanh50.2cm/s MV DEH18emJ/A ratio0.7MVA (PHT)3.94cm2 TDI Lateral E' Peak V10.67cm/sMedial E' Peak V5.54cm/sE/Lateral E'6.0 E/Medial E'11.5 Pulmonary Valve PV Peak Fewzunrv084.9cm/s Tricuspid Valve TR Peak Upbltepl606po/sRAP YCNZCVVD25muFyOP Peak Gr.25mmHg LCMV12iwGm LEFT VENTRICLE The left ventricle is normal size. There is mild concentric left ventricular hypertrophy. Left ventricle systolic function is normal. The Ejection Fraction is 65-70%. There is normal LV segmental wall motion. Transmitral Doppler flow pattern is Grade I-abnormal relaxation pattern. RIGHT VENTRICLE The right ventricle is normal size. There is normal right ventricular wall thickness. The right ventricular systolic function is normal. ATRIA The left atrium size is normal. The right atrium size is normal. AORTIC VALVE The aortic valve is normal in structure and function. No aortic regurgitation is present. There is no aortic valvular stenosis. There is no aortic valvular vegetation. MITRAL VALVE The mitral valve is normal in structure and function. No vegetation seen There is no evidence of mitral valve prolapse. There is no mitral valve stenosis. There is no mitral valve regurgitation noted. TRICUSPID VALVE The tricuspid valve is normal in structure. There is mild tricuspid regurgitation. Right ventricular systolic pressure is estimated at 37 mmHg. There is mild pulmonary hypertension. PULMONIC VALVE The pulmonary valve is normal in structure and function. There is no pulmonic valvular regurgitation. GREAT VESSELS The aortic root is normal in size. The IVC is normal in size and collapses >50% with inspiration. PERICARDIAL EFFUSION The pericardium appears normal. <Conclusion> The left ventricle is normal size. There is mild concentric left ventricular hypertrophy. There is normal LV segmental wall motion. Left ventricle systolic function is normal. The Ejection Fraction is 65-70%. Transmitral Doppler flow pattern is Grade I-abnormal relaxation pattern. No vegetations seen on this TTE.
--- NOTE | 2017-07-10 09:23 | CP.PCM.PN ---
Subjective - Date & Time of Evaluation Date of Evaluation: 07/10/17 Time of Evaluation: 09:20 - Subjective Subjective: pt seen and examined at bedside. No acute events overnight. Afebrile overnight. WBC improving. Pt tolerating IV abx w/o issue. Denies any new complaints. Dizziness resolved. Tolerating PO intake. No diarrhea. No N/V/D, CP/SOB, fever/ chills. Objective - Vital Signs/Intake and Output Vital Signs (last 24 hours): Temp Pulse Resp BP Pulse Ox 98.5 F 89 20 153/69 H 96 07/10/17 08:05 07/10/17 08:05 07/10/17 08:05 07/10/17 08:05 07/10/17 08:05 - Medications Medications: Current Medications Acetaminophen (Tylenol 325mg Tab) 650 mg PO Q6 PRN PRN Reason: Fever >100.4 F Last Admin: 07/09/17 13:45 Dose: 650 mg Albuterol (Ventolin Hfa 90 Mcg/Actuation (8 G)) 1 puff IH DAILY [facility] Last Admin: 07/10/17 08:29 Dose: 1 puff Ciprofloxacin/Dexamethasone (Ciprodex Otic) 4 drop AU BID [facility] Last Admin: 07/10/17 08:26 Dose: 4 drop Docusate Sodium (Colace) 100 mg PO BID [facility] Last Admin: 07/10/17 08:26 Dose: 100 mg Duloxetine HCl (Cymbalta) 60 mg PO DAILY [facility] Last Admin: 07/10/17 08:27 Dose: 60 mg Enoxaparin Sodium (Lovenox) 40 mg SC DAILY [facility] PRN Reason: Protocol Last Admin: 07/10/17 08:28 Dose: 40 mg Hydrochlorothiazide (Hydrodiuril) 25 mg PO DAILY [facility] Last Admin: 07/10/17 08:28 Dose: 25 mg Cefepime HCl 2 gm/ Dextrose 100 mls @ 100 mls/hr IVPB Q12 [facility] PRN Reason: Protocol Last Admin: 07/10/17 08:37 Dose: 100 mls/hr Loratadine (Claritin) 10 mg PO DAILY [facility] Last Admin: 07/10/17 08:26 Dose: 10 mg Meclizine HCl (Antivert) 25 mg PO TID PRN PRN Reason: Dizziness Last Admin: 07/09/17 13:42 Dose: 25 mg Metformin HCl (Glucophage) 1,000 mg PO BID [facility] Last Admin: 07/10/17 08:27 Dose: 1,000 mg Mirtazapine (Remeron) 15 mg PO HS [facility] Last Admin: 07/09/17 21:22 Dose: 15 mg Montelukast Sodium (Singulair) 10 mg PO HS [facility] Last Admin: 07/09/17 21:22 Dose: 10 mg Ondansetron HCl (Zofran Inj) 4 mg IVP Q6 PRN PRN Reason: Nausea/Vomiting Pantoprazole Sodium (Protonix Ec Tab) 40 mg PO DAILY [facility] Last Admin: 07/10/17 08:28 Dose: 40 mg Fluticasone/Salmeterol (Advair Diskus 250/50) 1 puff IH DAILY [facility] Last Admin: 07/10/17 08:25 Dose: 1 puff Sitagliptin Phosphate (Januvia) 100 mg PO DAILY [facility] Last Admin: 07/10/17 08:28 Dose: 100 mg Valsartan (Diovan) 160 mg PO DAILY [facility] Last Admin: 07/10/17 08:27 Dose: 160 mg - Labs Labs: 07/10/17 06:00 07/10/17 06:00 - Constitutional Appears: Non-toxic, No Acute Distress - Eye Exam Eye Exam: EOMI Pupil Exam: PERRL - ENT Exam ENT Exam: Mucous Membranes Moist - Neck Exam Neck Exam: Full ROM - Respiratory Exam Respiratory Exam: Clear to Ausculation Bilateral, NORMAL BREATHING PATTERN. absent: Rales, Rhonchi, Wheezes - Cardiovascular Exam Cardiovascular Exam: REGULAR RHYTHM, RRR, +S1, +S2. absent: JVD, Rubs - GI/Abdominal Exam GI & Abdominal Exam: Soft, Normal Bowel Sounds. absent: Tenderness - Extremities Exam Extremities Exam: Normal Inspection. absent: Calf Tenderness, Pedal Edema, Tenderness - Back Exam Back Exam: absent: CVA tenderness (L), CVA tenderness (R) - Neurological Exam Neurological Exam: Alert, Awake, CN II-XII Intact, Oriented x3 - Psychiatric Exam Psychiatric exam: Normal Affect, Normal Mood - Skin Skin Exam: Dry, Intact, Normal Color, Warm Assessment and Plan (1) Sepsis Assessment & Plan: secondary to UTI Resolving WBC improving, 12.1 today Afebrile C/W IV Cefepime 2gm Q12H Cipro ear drops blood cultures positive with Gram negative Rods -f/u blood cultures negative -f/u Urine cultures - Lactate: 2.2 (down from 3.8) - ID consulted: as per Dr. Stack: he recommends Cipro ear drops and continue with Cefepime. -will continue to follow recommendations Status: Acute (2) Hypertension Assessment & Plan: controlled c/w current home meds ECHO: LVEF 65-70%, no sign of endocarditis Status: Chronic (3) Diabetes mellitus Assessment & Plan: controlled c/w current home meds as ordered Status: Chronic (4) Asthma Assessment & Plan: asymptomatic c/w home medications Status: Chronic (5) Prophylactic measure Assessment & Plan: Lovenox 40mg SC QD SCDs OOB/ambulation Status: Acute
--- NOTE | 2017-07-10 12:38 | CP.PCM.CON ---
History of Present Illness - History of Present Illness History of Present Illness: Pt with pmhx of DM presents with fever and ear ache. Blood culture positive for klebsiella Past Patient History - Past Medical History & Family History Past Medical History?: Yes - Past Social History Alcohol: None Drugs: Denies - CARDIAC Hx Hypercholesterolemia: Yes Hx Hypertension: Yes - PULMONARY Hx Asthma: Yes - NEUROLOGICAL Hx Neurological Disorder: No - HEENT Hx HEENT Problems: No - RENAL Hx Chronic Kidney Disease: No - ENDOCRINE/METABOLIC Hx Endocrine Disorders: Yes Hx Diabetes Mellitus Type 2: Yes - HEMATOLOGICAL/ONCOLOGICAL Hx Human Immunodeficiency Virus (HIV): No - INTEGUMENTARY Hx Dermatological Problems: No - MUSCULOSKELETAL/RHEUMATOLOGICAL Hx Musculoskeletal Disorders: No Hx Falls: No - GASTROINTESTINAL Hx Gastrointestinal Disorders: No - GENITOURINARY/GYNECOLOGICAL Hx Genitourinary Disorders: No - PSYCHIATRIC Hx Depression: Yes - SURGICAL HISTORY Hx Surgeries: No - ANESTHESIA Hx Anesthesia: Yes Hx Anesthesia Reactions: No Hx Malignant Hyperthermia: No Meds Allergies/Adverse Reactions: Allergies Allergy/AdvReac Type Severity Reaction Status Date / Time No Known Allergies Allergy Verified 01/02/17 20:43 - Medications Medications: Current Medications Acetaminophen (Tylenol 325mg Tab) 650 mg PO Q6 PRN PRN Reason: Fever >100.4 F Last Admin: 07/09/17 13:45 Dose: 650 mg Albuterol (Ventolin Hfa 90 Mcg/Actuation (8 G)) 1 puff IH DAILY [facility] Last Admin: 07/10/17 08:29 Dose: 1 puff Ciprofloxacin/Dexamethasone (Ciprodex Otic) 4 drop AU BID [facility] Last Admin: 07/10/17 08:26 Dose: 4 drop Docusate Sodium (Colace) 100 mg PO BID [facility] Last Admin: 07/10/17 08:26 Dose: 100 mg Duloxetine HCl (Cymbalta) 60 mg PO DAILY [facility] Last Admin: 07/10/17 08:27 Dose: 60 mg Enoxaparin Sodium (Lovenox) 40 mg SC DAILY [facility] PRN Reason: Protocol Last Admin: 07/10/17 08:28 Dose: 40 mg Hydrochlorothiazide (Hydrodiuril) 25 mg PO DAILY [facility] Last Admin: 07/10/17 08:28 Dose: 25 mg Piperacillin Sod/Tazobactam (Sod 3.375 gm/ Sodium Chloride) 100 mls @ 100 mls/ hr IVPB Q6 [facility] PRN Reason: Protocol Loratadine (Claritin) 10 mg PO DAILY [facility] Last Admin: 07/10/17 08:26 Dose: 10 mg Meclizine HCl (Antivert) 25 mg PO TID PRN PRN Reason: Dizziness Last Admin: 07/09/17 13:42 Dose: 25 mg Metformin HCl (Glucophage) 1,000 mg PO BID [facility] Last Admin: 07/10/17 08:27 Dose: 1,000 mg Mirtazapine (Remeron) 15 mg PO HS [facility] Last Admin: 07/09/17 21:22 Dose: 15 mg Montelukast Sodium (Singulair) 10 mg PO HS [facility] Last Admin: 07/09/17 21:22 Dose: 10 mg Ondansetron HCl (Zofran Inj) 4 mg IVP Q6 PRN PRN Reason: Nausea/Vomiting Pantoprazole Sodium (Protonix Ec Tab) 40 mg PO DAILY [facility] Last Admin: 07/10/17 08:28 Dose: 40 mg Fluticasone/Salmeterol (Advair Diskus 250/50) 1 puff IH DAILY [facility] Last Admin: 07/10/17 08:25 Dose: 1 puff Sitagliptin Phosphate (Januvia) 100 mg PO DAILY [facility] Last Admin: 07/10/17 08:28 Dose: 100 mg Valsartan (Diovan) 160 mg PO DAILY [facility] Last Admin: 07/10/17 08:27 Dose: 160 mg Results - Vital Signs Recent Vital Signs: Last Vital Signs Temp 98.5 F 07/10/17 08:05 Pulse 89 07/10/17 08:05 Resp 20 07/10/17 08:05 BP 153/69 H 07/10/17 08:05 Pulse Ox 96 07/10/17 08:05 - Labs Result Diagrams: 07/10/17 06:00 07/10/17 06:00 Labs: Laboratory Results - last 24 hr 07/09/17 07/09/17 07/10/17 16:36 22:02 05:59 WBC RBC Hgb Hct MCV MCH MCHC RDW Plt Count MPV Neut % (Auto) Lymph % (Auto) [place] % (Auto) Eos % (Auto) Baso % (Auto) Neut # Lymph # [place] # Eos # Baso # Sodium Potassium Chloride Carbon Dioxide Anion Gap BUN Creatinine Est GFR ( Amer) Est GFR (Non-Af Amer) POC Glucose (mg/dL) 186 H 135 H 128 H Random Glucose Calcium 07/10/17 07/10/17 07/10/17 06:00 06:00 10:53 WBC 12.7 H RBC 4.03 Hgb 10.9 L Hct 32.8 L MCV 81.3 MCH 27.0 MCHC 33.1 RDW 15.5 H Plt Count 288 MPV 9.3 Neut % (Auto) 68.5 Lymph % (Auto) 20.0 [place] % (Auto) 8.0 Eos % (Auto) 2.9 Baso % (Auto) 0.6 Neut # 8.7 H Lymph # 2.5 [place] # 1.0 H Eos # 0.4 Baso # 0.1 Sodium 142 Potassium 4.0 Chloride 104 Carbon Dioxide 28 Anion Gap 14 BUN 11 Creatinine 0.6 L Est GFR ( Amer) > 60 Est GFR (Non-Af Amer) > 60 POC Glucose (mg/dL) 298 H Random Glucose 138 H Calcium 9.3 Assessment & Plan - Assessment and Plan (Free Text) Assessment: Urosepsis with klebsiella. d/c cefepime and start Zosyn 3.375 q 6h for 7 to 10 days Continue ciprodex Repeat blood cultures tomorrow
[2017-07-10] MEDS: Piperacillin/Tazobact 3.375 GM in Sodium Chloride 0.9% 100 ML IVPB SCH ×2 (16:57→21:36)
--- NOTE | 2017-07-10 22:01 | CT ---
EXAM: CT Temporal Bones Without Intravenous Contrast EXAM DATE/TIME: 07/10/2017 1:45 PM CLINICAL HISTORY: 77 years old, female; Pain; Other: Mastoid pain; Additional info: Mastoid pain, sepsis. Sepsis, fever TECHNIQUE: Axial computed tomography images of the temporal bones without intravenous contrast. All CT scans at this facility use one or more dose reduction techniques, viz.: automated exposure control; ma/kV adjustment per patient size (including targeted exams where dose is matched to indication; i.e. head); or iterative reconstruction technique. Coronal and sagittal reformatted images were created and reviewed. COMPARISON: CT - HEAD W/O CONTRAST 2017-07-07 23:37 FINDINGS: Right ear and mastoid: External auditory canal is patent. There are no filling defects. Tympanic membrane is thin and difficult to visualize. Middle ear is well aerated. Ossicles are unremarkable. Scutum is intact. Right mastoid is well aerated. There are no air-fluid levels. Cochlea and semicircular canals are unremarkable. Internal auditory canal is unremarkable. Left ear and mastoid: Left external auditory canal is patent without filling defects. Tympanic membrane is thin and difficult to visualize. Ossicles are unremarkable. Scutum is intact. Middle ear cavity is well-aerated. Left mastoid is well aerated. There are no air-fluid levels. Cochlea and semicircular canals are unremarkable. Internal auditory canal is unremarkable. Bones/joints: Temporomandibular joints align anatomically. Soft tissues: Visualized portions of the parotid glands are unremarkable. Parapharyngeal spaces are symmetric. There are no facial masses. Tonsils and adenoids are unremarkable. There is no soft tissue swelling about the pinnae. Nodes: There is no periauricular adenopathy. Sinuses:There is no acute sinusitis. Brain:No focal abnormalities are seen in visualized portion of the brain. IMPRESSION: Normal ears and mastoids Additional findings as described above.
[2017-07-11] MEDS: Piperacillin/Tazobact 3.375 GM in Sodium Chloride 0.9% 100 ML IVPB SCH ×2 (04:06→10:27)
[2017-07-11] MEDS: Pantoprazole 40 mg EC Tab PO SCH (09:20)
[2017-07-11] MEDS: Enoxaparin 40 mg Syringe SC SCH (09:26)
[2017-07-11] MEDS: Ciprofloxacin/Dexamethasone OTIC SUSP AU SCH (09:27)
[2017-07-11] MEDS: Fluticasone-Salmeterol 250-50mcg Diskus IH SCH (09:29)
[2017-07-11] MEDS: Albuterol HFA 90 mcg/actuation (8 g) IH SCH (09:33)
--- NOTE | 2017-07-11 09:39 | CP.PCM.PN ---
Subjective - Date & Time of Evaluation Date of Evaluation: 07/11/17 Time of Evaluation: 09:39 - Subjective Subjective: pt seen and examined at bedside. No acute events overnight. Afebrile overnight. WBC improving. Pt tolerating new IV abx regiment w/o issue. Dizziness returned, is intermittent and only occurs when she bends forwards, but is controlled once she receives meds. Facial bones CT negative. Mastoid pain resolved. Tolerating PO intake. No diarrhea. No N/V/D, CP/SOB, fever/chills. Objective - Vital Signs/Intake and Output Vital Signs (last 24 hours): Temp Pulse Resp BP Pulse Ox 98.4 F 86 20 129/73 93 L 07/11/17 08:49 07/11/17 08:49 07/11/17 08:49 07/11/17 08:49 07/11/17 08:49 - Medications Medications: Current Medications Acetaminophen (Tylenol 325mg Tab) 650 mg PO Q6 PRN PRN Reason: Fever >100.4 F Last Admin: 07/09/17 13:45 Dose: 650 mg Albuterol (Ventolin Hfa 90 Mcg/Actuation (8 G)) 1 puff IH DAILY [facility] Last Admin: 07/11/17 09:33 Dose: 1 puff Ciprofloxacin/Dexamethasone (Ciprodex Otic) 4 drop AU BID [facility] Last Admin: 07/11/17 09:27 Dose: 4 drop Docusate Sodium (Colace) 100 mg PO BID [facility] Last Admin: 07/11/17 09:20 Dose: 100 mg Duloxetine HCl (Cymbalta) 60 mg PO DAILY [facility] Last Admin: 07/11/17 09:21 Dose: 60 mg Enoxaparin Sodium (Lovenox) 40 mg SC DAILY [facility] PRN Reason: Protocol Last Admin: 07/11/17 09:26 Dose: 40 mg Hydrochlorothiazide (Hydrodiuril) 25 mg PO DAILY [facility] Last Admin: 07/11/17 09:20 Dose: 25 mg Piperacillin Sod/Tazobactam (Sod 3.375 gm/ Sodium Chloride) 100 mls @ 100 mls/ hr IVPB Q6 [facility] PRN Reason: Protocol Last Admin: 07/11/17 04:06 Dose: 100 mls/hr Loratadine (Claritin) 10 mg PO DAILY [facility] Last Admin: 07/11/17 09:24 Dose: 10 mg Meclizine HCl (Antivert) 25 mg PO TID PRN PRN Reason: Dizziness Last Admin: 07/11/17 09:21 Dose: 25 mg Metformin HCl (Glucophage) 1,000 mg PO BID [facility] Last Admin: 07/11/17 09:23 Dose: 1,000 mg Mirtazapine (Remeron) 15 mg PO HS [facility] Last Admin: 07/10/17 21:35 Dose: 15 mg Montelukast Sodium (Singulair) 10 mg PO HS [facility] Last Admin: 07/10/17 21:35 Dose: 10 mg Ondansetron HCl (Zofran Inj) 4 mg IVP Q6 PRN PRN Reason: Nausea/Vomiting Pantoprazole Sodium (Protonix Ec Tab) 40 mg PO DAILY [facility] Last Admin: 07/11/17 09:20 Dose: 40 mg Fluticasone/Salmeterol (Advair Diskus 250/50) 1 puff IH DAILY [facility] Last Admin: 07/11/17 09:29 Dose: 1 puff Sitagliptin Phosphate (Januvia) 100 mg PO DAILY [facility] Last Admin: 07/11/17 09:23 Dose: 100 mg Valsartan (Diovan) 160 mg PO DAILY [facility] Last Admin: 07/11/17 09:24 Dose: 160 mg - Labs Labs: 07/10/17 06:00 07/10/17 06:00 - Constitutional Appears: Non-toxic, No Acute Distress - Head Exam Head Exam: ATRAUMATIC - Eye Exam Eye Exam: EOMI Pupil Exam: PERRL - ENT Exam ENT Exam: Mucous Membranes Moist Additional comments: left mastoid nontender, nonerythmatous, nonedematous - Neck Exam Neck Exam: Full ROM - Respiratory Exam Respiratory Exam: Clear to Ausculation Bilateral, NORMAL BREATHING PATTERN. absent: Rales, Rhonchi, Wheezes - Cardiovascular Exam Cardiovascular Exam: REGULAR RHYTHM, RRR, +S1, +S2. absent: Tachycardia, JVD, Rubs - GI/Abdominal Exam GI & Abdominal Exam: Soft, Normal Bowel Sounds. absent: Tenderness - Extremities Exam Extremities Exam: Normal Inspection. absent: Calf Tenderness, Pedal Edema - Back Exam Back Exam: absent: CVA tenderness (L), CVA tenderness (R) - Neurological Exam Neurological Exam: Alert, Awake, CN II-XII Intact, Oriented x3 - Psychiatric Exam Psychiatric exam: Normal Affect, Normal Mood - Skin Skin Exam: Dry, Intact, Normal Color, Warm Assessment and Plan (1) Sepsis Assessment & Plan: secondary to UTI due to Klebsiella bacteremia Resolving WBC improving, 12.7 07/10 ABX tx day#4 Afebrile IV Cefepime 2gm Q12H stopped switched to Zosyn 3.375 Q6H for 7 to 10 days a per ID Cipro ear drops blood cultures positive with Gram negative Rods -f/u blood cultures negative -f/u Urine cultures pending -Noncontrast facial CT negative for any disease. - Lactate: 2.2 (down from 3.8) - ID consulted: as per Dr. Stack: he recommends Cipro ear drops and start Zosyn instead of Cefepime. -Zosyn 3.375 Q6H x 14 days upon discharge -f/u CBC/BMP Status: Acute (2) Hypertension Assessment & Plan: controlled c/w current medications orthostatics ordered Status: Chronic (3) Diabetes mellitus Assessment & Plan: controlled c/w home medications Status: Chronic (4) Asthma Assessment & Plan: controlled c/w home medications Status: Chronic (5) Prophylactic measure Assessment & Plan: Lovenox 40mg SC QD OOB/ambulation with assist Status: Acute
[2017-07-11 16:51] VITALS: BP 118/71; PULSE 94; RESP 18; TEMP 98.5; O2SAT 94
== END 2017-07-11 16:00 | DRG 872 ==
LOC: H.ER 22:33 → H.ERHOLD 07-08 01:08 → H.TEL 07-08 03:13 → H.MEDSURG1 07-09 14:32
PROVIDERS: ADMIT Family Medicine Geriatric Medicine; ATTEND Family Medicine Geriatric Medicine
DX: A41.9 Sepsis, unspecified organism (principal); N39.0 Urinary tract infection, site not specified; B96.1 Klebsiella pneumoniae [K. pneumoniae] as the cause of diseases classified elsewhere; E11.9 Type 2 diabetes mellitus without complications; I10 Essential (primary) hypertension; E78.00 Pure hypercholesterolemia, unspecified; J45.909 Unspecified asthma, uncomplicated; F32.9 Major depressive disorder, single episode, unspecified; Z79.82 Long term (current) use of aspirin; Z87.891 Personal history of nicotine dependence

== ENCOUNTER 2017-11-23 15:24 | Emergency (ER) | payer MEDICARE, MEDICAID ==
[2017-11-23 15:30] VITALS: RESP 20; TEMP 98.1; O2SAT 97
--- NOTE | 2017-11-23 15:52 | ED PDOC ---
HPI: Female Pain Additional Complaint(s): 77yo F with PMHx UTI, DM, HTN, HLD, asthma, klebseilla bactermia c/o hematuria. hematuria x2 days, a/w right groin pain. Denies fever, chills, dysuria, CVAT, suprapubic tenderness. H/o UTI with klebseilla and E. coli. Denies n/v, chest pain, SOB, abd pain, diarrhea. Tolerating PO with decreased appetite. COmpliant with medication and all taken today. PCP Dr. Gagandeep Escobar <Adriana Stern - Last Filed: 11/23/17 17:34> <Angie Francisco - Last Filed: 11/23/17 17:57> Chief Complaint (Nursing): Female Genitourinary Supervising Attending Note - Supervising Attending Note The Documented history was done by the: Physician Packaging Technician, Attending Physician The documented physical exam was done by the: Physician Packaging Technician, Attending Physician - Attestation: I have personally seen and examined this patient.: Yes I have fully participated in the care of the patient.: Yes I have reviewed all pertinent clinical information, including history, physical exam and plan: Yes - Notes: Notes:: Hematuria, otherwise benign physical exam. <Angie Francisco - Last Filed: 11/23/17 17:57> Past Medical History Reviewed: Historical Data, Nursing Documentation, Vital Signs Vital Signs: Last Vital Signs Temp 98.1 F 11/23/17 15:27 Pulse 108 H 11/23/17 15:27 Resp 20 11/23/17 15:27 BP 165/79 H 11/23/17 15:27 Pulse Ox 97 11/23/17 15:27 - Medical History PMH: Asthma, Depression, Diabetes (type II), HTN, Hypercholesterolemia Denies: HIV, Chronic Kidney Disease - Family History Family History: States: Unknown Family Hx - Immunization History Hx Tetanus Toxoid Vaccination: No <Adriana Stern - Last Filed: 11/23/17 17:34> Vital Signs: Last Vital Signs Temp 98.1 F 11/23/17 15:27 Pulse 89 11/23/17 16:51 Resp 20 11/23/17 15:27 BP 123/69 11/23/17 16:51 Pulse Ox 97 11/23/17 17:34 <Angie Francisco - Last Filed: 11/23/17 17:57> - Home Medications Home Medications: Ambulatory Orders Medication Instructions Recorded DULoxetine [Cymbalta] 60 mg PO DAILY #30 ecc 01/04/17 Fluticasone/Salmeterol 250/50 1 dsk IH DAILY #1 puff 01/04/17 [Advair Diskus 250/50] Metformin HCl [Glucophage] 1,000 mg PO BID #30 tablet 01/04/17 Montelukast [Singulair] 10 mg PO HS #30 tab 01/04/17 SITagliptin [Januvia] 100 mg PO DAILY #30 tab 01/04/17 hydroCHLOROthiazide [Hydrodiuril] 25 mg PO DAILY #30 tab 01/04/17 Albuterol HFA [Ventolin HFA 90 1 puff IH DAILY 07/08/17 mcg/actuation (8 g)] Aspirin [Adult Low Dose Aspirin EC] 81 mg PO DAILY 07/08/17 Docusate Sodium [Dok] 100 mg PO BID 07/08/17 Fexofenadine HCl [Licha NF] 180 mg PO DAILY 07/08/17 Meclizine HCl [Motion Sickness II] 25 mg PO TID PRN 07/08/17 Mirtazapine [Remeron] 15 mg PO HS 07/08/17 Pantoprazole Sodium [Protonix] 40 mg PO DAILY 07/08/17 Valsartan [Diovan] 160 mg PO DAILY 07/08/17 Ciprofloxacin/Dexamethasone 4 drop AU BID bottle 07/11/17 [Ciprodex Otic] Nitrofurantoin Macrocrystals 1 cap PO BID #14 cap 11/23/17 [Macrobid] - Allergies Allergies/Adverse Reactions: Allergies Allergy/AdvReac Type Severity Reaction Status Date / Time No Known Allergies Allergy Verified 01/02/17 20:43 Review of Systems ROS Statement: Except As Marked, All Systems Reviewed And Found Negative Genitourinary Female: Positive for: Hematuria <Adriana Stern - Last Filed: 11/23/17 17:34> Physical Exam - Reviewed Nursing Documentation Reviewed: Yes Vital Signs Reviewed: Yes - Physical Exam Appears: Positive for: Well, Non-toxic Head Exam: Positive for: ATRAUMATIC, NORMAL INSPECTION Skin: Positive for: Warm, Dry Eye Exam: Positive for: Normal appearance Neck: Positive for: Normal, Supple Cardiovascular/Chest: Positive for: Regular Rate, Rhythm, Chest Non Tender Respiratory: Positive for: Normal Breath Sounds, Decreased Breath Sounds Gastrointestinal/Abdominal: Positive for: Soft. Negative for: Tenderness (no suprapubic tenderness) Back: Positive for: Normal Inspection. Negative for: L CVA Tenderness, R CVA Tenderness, Vertebral Tenderness Extremity: Positive for: Normal ROM. Negative for: Tenderness Neurologic/Psych: Positive for: Alert, Oriented <Dilang - Last Filed: 11/23/17 17:34> - Laboratory Results Result Diagrams: 11/23/17 16:30 11/23/17 16:30 - ECG O2 Sat by Pulse Oximetry: 97 <Adriana - Last Filed: 11/23/17 17:34> - Laboratory Results Result Diagrams: 11/23/17 16:30 11/23/17 16:30 <Angie Francisco - Last Filed: 11/23/17 17:57> Medical Decision Making Medical Decision Makin DDx UTI, pyelonephritis, nephrolithiasis U dip, UA, urine cx U dip with blood UA with RBC reassessment CT abd/pelvis-no kidney stone CBC no leukocytosis CMP d/c home with abx for UTI d/w PCP and has FU appt 12/19/17 <JarredDilang - Last Filed: 11/23/17 17:34> Disposition - Disposition Disposition Time: 17:34 <Dilang - Last Filed: 11/23/17 17:34> <Angie Francisco - Last Filed: 11/23/17 17:57> - Clinical Impression Clinical Impression: Hematuria - Disposition Referrals: [facility] [Outside] - 11/26/17 Condition: STABLE Prescriptions: Nitrofurantoin Macrocrystals [Macrobid] 1 cap PO BID #14 cap Instructions: Blood in the Urine (Hematuria) in Adults Forms: [facility] ([place]) Print Language: FAROESE
[2017-11-23 16:30] LABS: SQUAMOUS EPITHIAL < 1 /hpf (0-5); URINE BACTERIA OCC (<OCC); URINE BILIRUBIN NEGATIVE (NEGATIVE); URINE BLOOD LARGE (NEGATIVE); URINE CLARITY CLEAR (Clear); URINE COLOR YELLOW (YELLOW); URINE GLUCOSE (UA) NEG (Normal); URINE LEUKOCYTE ESTERASE NEG Leu/uL (Negative); URINE NITRATE NEGATIVE (NEGATIVE); URINE PROTEIN 30 mg/dL (NEGATIVE); URINE UROBILINOGEN 0.2-1.0 mg/dL (0.2-1.0)
[2017-11-23 16:35] LABS: BASO # 0.1 K/uL (0.0-0.2); BASO % 1.4 % (0.0-2.0); EOS # 0.2 K/uL (0.0-0.7); EOS % 2.3 % (0.0-4.0); HEMOGLOBIN 12.3 g/dL (12.0-16.0); LYMPH # 3.3 K/uL (1.0-4.3); LYMPH % 39.2 % (20.0-40.0); MEAN CELL VOLUME 80.7 fl (81.0-99.0); MEAN CORPUSCULAR HEMOGLOBIN 26.3 pg (27.0-31.0); MEAN CORPUSCULAR HGB CONC 32.6 g/dL (33.0-37.0); MEAN PLATELET VOLUME 9.7 fl (7.2-11.7); MONO # 0.8 K/uL (0.0-0.8); NEUT # 3.9 K/uL (1.8-7.0); NEUT % 47.1 % (50.0-75.0); NRBC % 0.1 % (0.0-0.0); RBC 4.68 Mil/uL (3.80-5.20); RED CELL DISTRIBUTION WIDTH 15.8 % (11.5-14.5); WHITE BLOOD COUNT 8.4 K/uL (4.8-10.8)
[2017-11-23 16:52] VITALS: BP 123/69; PULSE 89
[2017-11-23 16:58] LABS: ALB/GLOB RATIO 1.1 (1.0-2.1); ALBUMIN 4.3 g/dL (3.5-5.0); ALT/SGPT 55 U/L (9-52); AST/SGOT 97 U/L (14-36); BLOOD UREA NITROGEN 16 mg/dl (7-17); CALCIUM 9.9 mg/dL (8.4-10.2); GFR AFRICAN-AMERICAN > 60; GFR NON-AFRICAN AMERICAN > 60
--- NOTE | 2017-11-23 17:01 | CT ---
PROCEDURE: CT Abdomen and Pelvis without intravenous contrast HISTORY: RIGHT flank pain hematruia COMPARISON: 05/29/2013 TECHNIQUE: Without contrast.. Contrast Dose: 0 Radiation dose: Total exam DLP = 952.87 mGy-cm. This CT exam was performed using one or more of the following dose reduction techniques: Automated exposure control, adjustment of the mA and/or kV according to patient size, and/or use of iterative reconstruction technique. FINDINGS: LOWER THORAX: Small hiatal hernia. LIVER: Normal size and contour. Normal attenuation. Previous diffuse fatty infiltration has resolved. 2 small rounded low-attenuation lesions common not identified on prior examination. Anterior right hepatic lobe, 10 mm. Lateral segment left hepatic lobe, 11 mm. Given the absence of visualization on prior examination, correlation with ultrasound examination is advised. Please note that 2 previous abdominal ultrasounds in 2016 demonstrated no evidence of hepatic mass/cyst. No biliary dilatation. GALLBLADDER AND BILE DUCTS: Unremarkable. PANCREAS: Unremarkable. No gross lesion or ductal dilatation. SPLEEN: Unremarkable. ADRENALS: Unremarkable. No mass. KIDNEYS AND URETERS: Exophytic left lower pole renal cortical cyst, 1.7 cm. Unchanged. Focal punctate cortical calcification mid right kidney, unchanged, in retrospect from prior examination. Uncertain significance. No hydronephrosis. No renal calculus. VASCULATURE: Unremarkable. No aortic aneurysm. BOWEL: Sigmoid diverticulosis. No evidence of diverticulitis. No bowel obstruction. No other abnormal bowel loops. APPENDIX: Unremarkable. Normal appendix. PERITONEUM: Unremarkable. No free fluid. No free air. LYMPH NODES: Unremarkable. No enlarged lymph nodes. BLADDER: Unremarkable. REPRODUCTIVE: Normal uterus. BONES: No acute fracture. OTHER FINDINGS: None. IMPRESSION: Two small rounded low-attenuation hepatic lesions not identified on prior CT examination. Recommend correlation with abdominal ultrasound examination. Stable left lower pole exophytic renal cortical cyst. Focal punctate right renal cortical calcification, unchanged and of uncertain significance. No urinary calculus or urinary tract obstruction. Sigmoid diverticulosis. Hiatal hernia.
== END 2017-11-23 17:58 | disposition home or self-care (01) ==
LOC: H.ER 15:24
DX: N39.0 Urinary tract infection, site not specified (principal); B96.20 Unspecified Escherichia coli [E. coli] as the cause of diseases classified elsewhere; E11.9 Type 2 diabetes mellitus without complications; E78.00 Pure hypercholesterolemia, unspecified; F32.9 Major depressive disorder, single episode, unspecified; I10 Essential (primary) hypertension; J45.909 Unspecified asthma, uncomplicated; K44.9 Diaphragmatic hernia without obstruction or gangrene; K57.30 Diverticulosis of large intestine without perforation or abscess without bleeding; Z79.82 Long term (current) use of aspirin